=== PATIENT | female | born 1940 | race Caucasian/White ===

== ENCOUNTER → 2016-11-06 | Outpatient (CLI) | payer MEDICARE, OTHER ==
--- NOTE | 2016-11-07 13:23 | XR ---
Left ankle HISTORY: Trauma and pain 3 views of the left ankle There is mild soft tissue swelling. Bone mineralization, joint spaces and alignment are maintained. T here is a small plantar calcaneal spur. Calcification present along the insertion of the Achilles ten don, distal Achilles. IMPRESSION: No acute fracture or dislocation is evident.
== END | disposition home or self-care (01) ==
LOC: RADXRYALE 15:12
PROVIDERS: ATTEND Physician Assistant Medical
DX: S99.912A Unspecified injury of left ankle, initial encounter (principal)

== ENCOUNTER → 2016-11-19 | Outpatient (CLI) | payer MEDICARE, OTHER ==
--- NOTE | 2016-11-20 12:43 | MM ---
Reason for exam: screening (asymptomatic). Last mammogram was performed 1 year ago. History: Patient is postmenopausal. Benign excisional biopsy of the left breast. Benign excisional biopsy of the right breast. Took estrogen for 24 years. Took progesterone for 24 years. Physical Findings: A clinical breast exam by your physician is recommended on an annual basis and results should be correlated with mammographic findings. MG Screening Mammo w CAD Bilateral CC and MLO view(s) were taken. Prior study comparison: November 14, 2015, bilateral MG 3d screening mammo w/cad. November 08, 2014, bilateral MG screening mammo w CAD. The breast tissue is heterogeneously dense. This may lower the sensitivity of mammography. No significant changes when compared with prior studies. ASSESSMENT: Benign, BI-RAD 2 RECOMMENDATION: Routine screening mammogram of both breasts in 1 year.
== END | disposition home or self-care (01) ==
LOC: RADMAMWWP 13:00
PROVIDERS: ATTEND Family Medicine
DX: Z12.31 Encounter for screening mammogram for malignant neoplasm of breast (principal)

== ENCOUNTER → 2017-06-19 | Outpatient (CLI) | payer MEDICARE, OTHER ==
--- NOTE | 2017-06-19 11:48 | XR ---
EXAMINATION TYPE: XR ankle complete LT DATE OF EXAM: 06/19/2017 CLINICAL HISTORY: Left ankle pain and swelling after injury TECHNIQUE: Frontal, lateral and oblique images of the left ankle are obtained. COMPARISON: None. FINDINGS: There is no acute fracture/dislocation evident in the left ankle. The ankle mortise appea rs within normal limits. Tiny inferior calcaneal spur is noted. Anterior soft tissue swelling is note d. IMPRESSION: There is no acute fracture or dislocation in the left ankle.
== END | disposition home or self-care (01) ==
LOC: RADXRYALE 11:24
PROVIDERS: ATTEND Physician Assistant Medical
DX: S93.401A Sprain of unspecified ligament of right ankle, initial encounter (principal)

== ENCOUNTER → 2017-12-02 | Outpatient (CLI) | payer MEDICARE, OTHER ==
--- NOTE | 2017-12-02 15:23 | BD ---
EXAMINATION TYPE: Axial Bone Density DATE OF EXAM: 12/02/2017 CLINICAL HISTORY: Height: 63 Weight: 160 FRAX RISK QUESTIONS: Alcohol (3 or more units per day): no Family History (Parent hip fracture): no Glucocorticoids (More than 3mos): no (Ex: prednisone, prednisolone, methylprednisolone, dexamethasone, and hydrocortisone). History of Fracture in Adulthood: no Secondary Osteoporosis: 1. Type 1 Diabetes: no 2. Hyperthyroidism: no 3. Menopause before 45: no 4. Malnutrition: no 5. Chronic liver disease: no Rheumatoid Arthritis: no Current Tobacco Use: no RISK FACTORS HISTORY OF: Family History of Osteoporosis: no Active: yes Diet low in dairy products/other sources of calcium: about one serving a day Postmenopausal woman: yes Take estrogen and/or progesterone medications: not now How long: about 24 years Lost more than 2 inches in height since high school: no Frequent falls: no Poor Health: no Hyperparathyroidism: no Adrenal Insufficiency: no MEDICATIONS: Prednisone or other steroids: no Thyroid Medications: no Osteoporosis Medications: no Additional Medications: blood pressure meds, Vitamin D & calcium Additional History: see MR of Lumbar spine dated 03/08/1016 EXAM MEASUREMENTS: Bone mineral densitometry was performed using the [employer] System. Bone mineral density as measured about the Lumbar spine is: ----- L1-L4(G/cm2): 1.122 T Score Values are as follows: ----- L2: -0.3 ----- L3: -0.3 ----- L4: 0.4 ----- L1-L4: -0.5 Bone mineral density has: Decreased -10.4% since study of: 08/13/2002 Bone mineral density about the R hip (g/cm2): 0.849 Bone mineral density about the L hip (g/cm2): 0.800 T Score values are as follows: -----R Neck: -1.4 -----L Neck: -1.7 -----R Total: -0.2 -----L Total: -0.6 Bone mineral density has: Decreased -12.6% since study of: 08/13/2002 IMPRESSION: No evidence for osteoporosis or osteopenia. NOTE: T-SCORE=SD OF THE YOUNG ADULT MEAN.
--- NOTE | 2017-12-03 08:14 | MM ---
Reason for exam: screening (asymptomatic). Last mammogram was performed 1 year ago. History: Patient is postmenopausal. Benign excisional biopsy of the left breast. Benign excisional biopsy of the right breast. Took estrogen for 24 years. Took progesterone for 24 years. Physical Findings: A clinical breast exam by your physician is recommended on an annual basis and results should be correlated with mammographic findings. MG Screening Mammo w CAD Bilateral CC and MLO view(s) were taken. Prior study comparison: November 19, 2016, bilateral MG screening mammo w CAD. November 14, 2015, bilateral MG 3d screening mammo w/cad. The breast tissue is heterogeneously dense. This may lower the sensitivity of mammography. Stable benign calcifications. There is no discrete abnormality. No significant changes when compared with prior studies. ASSESSMENT: Benign, BI-RAD 2 RECOMMENDATION: Routine screening mammogram of both breasts in 1 year.
== END | disposition home or self-care (01) ==
LOC: RADMAMWWP 10:28
PROVIDERS: ATTEND Family Medicine
DX: Z12.31 Encounter for screening mammogram for malignant neoplasm of breast (principal); Z13.820 Encounter for screening for osteoporosis
CPT/HCPCS: 77067; 77080

== ENCOUNTER → 2018-10-06 | Outpatient (CLI) | payer MEDICARE, OTHER ==
--- NOTE | 2018-10-06 09:26 | XR ---
EXAMINATION TYPE: XR chest 2V DATE OF EXAM: 10/06/2018 COMPARISON: 11/15/2011 HISTORY: Productive cough for 4 to 5 days TECHNIQUE: Frontal and lateral views of the chest are obtained. FINDINGS: There is no focal air space opacity, pleural effusion, or pneumothorax seen. Chronic atele ctasis and/or scarring is seen at the left heart border unchanged from 2012. The cardiac silhouette s ize is within normal limits. The osseous structures are intact. Mild generalized osseous deminerali zation is seen. IMPRESSION: No acute cardiopulmonary process.
== END ==
LOC: RADXRYALE 08:53
PROVIDERS: ATTEND Family Medicine
DX: R05 Cough (principal)
CPT/HCPCS: 71046

== ENCOUNTER 2018-11-22 07:40 | Inpatient (IN) | payer MEDICARE, OTHER ==
[2018-11-22] MEDS ORDERED: MECLIZINE 12.5 MG TAB PO STA (08:05)
[2018-11-22] MEDS ORDERED: SODIUM CHLORIDE 0.9% 1,000 ML IV STA (08:05)
--- NOTE | 2018-11-22 08:17 | ED ---
Dizziness HPI - General Source: patient, family, RN notes reviewed Mode of arrival: wheelchair Limitations: no limitations <Giovanni Cohen - Last Filed: 11/22/18 11:43> <Vasile Sullivan - Last Filed: 11/22/18 11:50> - General Chief Complaint: Dizziness Stated Complaint: DIZZINESS Time Seen by Provider: 11/22/18 07:50 - History of Present Illness Initial Comments: 78-year-old female presents emergency Department chief complaint of dizziness. Patient states she woke up early this morning and had a headache at that time. She states she typically does not headaches. Patient is a headache has improved nearly dissipated. She states that she just so dizzy as difficulty ambulate. Patient denies any focal weakness. Patient denies any vomiting, chest pain or shortness of breath. He believes is related to her new medications Lexapro that she was just started on. Patient did contact her PCP who told discontinue it. Patient denies any trauma, fever, chills, neck pain or neck stiffness. Denies any recent URI symptoms other than mild seasonal ALLERGIES. (Giovanni Cohen) - Related Data Home Medications Medication Instructions Recorded Confirmed Meloxicam [Mobic] 15 mg PO DAILY 10/28/13 11/22/18 Metaxalone [Skelaxin] 800 mg PO BID 10/28/13 11/22/18 Verapamil HCl [Verapamil ER] 180 mg PO HS 10/28/13 11/22/18 Calcium Carbonate [Calcium] 1,200 mg PO DAILY 06/22/15 11/22/18 Cyanocobalamin [Vitamin B-12] 1,000 mcg PO DAILY 06/22/15 11/22/18 Lisinopril-Hctz 20-12.5 mg 1 tab PO QAM 06/22/15 11/22/18 [Zestoretic 20-12.5] Multivitamins, Thera [Theragran] 1 each PO DAILY@1200 06/22/15 11/22/18 Karen's Wort 300 mg PO DAILY 06/22/15 11/22/18 Vitamin E 400 unit PO DAILY 06/22/15 11/22/18 Melatonin 3 mg PO HS 08/10/15 11/22/18 Darifenacin Hydrobromide [Enablex] 7.5 mg PO DAILY 11/22/18 11/22/18 Allergies Allergy/AdvReac Type Severity Reaction Status Date / Time codeine AdvReac Nausea & Verified 11/22/18 08:43 Vomiting cyclobenzaprine HCl AdvReac Nausea & Verified 11/22/18 08:43 [From Flexeril] Vomiting ibuprofen [From Motrin] AdvReac Nausea & Verified 11/22/18 08:43 Vomiting morphine AdvReac Nausea & Verified 11/22/18 08:43 Vomiting pentazocine AdvReac Nausea & Verified 11/22/18 08:43 Vomiting tramadol HCl [From Ultram] AdvReac Nausea & Verified 11/22/18 08:43 Vomiting Review of Systems ROS Other: All systems not noted in ROS Statement are negative. <Giovanni Cohen - Last Filed: 11/22/18 11:43> ROS Other: All systems not noted in ROS Statement are negative. <Vasile Sullivan - Last Filed: 11/22/18 11:50> ROS Statement: Those systems with pertinent positive or pertinent negative responses have been documented in the HPI. Past Medical History Past Medical History: Hypertension, Osteoarthritis (OA) Additional Past Medical History / Comment(s): UTERINE PROLAPSED. bladder problems History of Any Multi-Drug Resistant Organisms: MRSA Date of last positivie culture/infection: 06/22/2015 MDRO Source:: urine Past Surgical History: Bladder Surgery, Hysterectomy, Orthopedic Surgery Additional Past Surgical History / Comment(s): rt shoulder arthroscopy, NIKI knee surg. arthroscopy,niki breast bx Past Anesthesia/Blood Transfusion Reactions: No Reported Reaction Additional Past Anesthesia/Blood Transfusion Reaction / Comment(s): no hx blood transfusion Past Psychological History: No Psychological Hx Reported Smoking Status: Never smoker Past Alcohol Use History: None Reported Past Drug Use History: None Reported - Past Family History Father Family Medical History: Cancer Mother Family Medical History: Osteoarthritis (OA) Additional Family Medical History / Comment(s): blockage in artery in neck Sister(s) Family Medical History: Pneumonia <Giovanni Cohen - Last Filed: 11/22/18 11:43> General Exam Limitations: no limitations General appearance: alert, in no apparent distress Head exam: Present: atraumatic, normocephalic, normal inspection Eye exam: Present: normal appearance, PERRL, EOMI. Absent: scleral icterus, conjunctival injection, periorbital swelling ENT exam: Present: normal exam, normal oropharynx, mucous membranes moist, TM's normal bilaterally Neck exam: Present: normal inspection, full ROM. Absent: tenderness, meningismus, lymphadenopathy Respiratory exam: Present: normal lung sounds bilaterally. Absent: respiratory distress, wheezes, rales, rhonchi, stridor Cardiovascular Exam: Present: regular rate, normal rhythm, normal heart sounds. Absent: systolic murmur, diastolic murmur, rubs, gallop, clicks GI/Abdominal exam: Present: soft, normal bowel sounds. Absent: distended, tenderness, guarding, rebound, rigid Back exam: Absent: CVA tenderness (R), CVA tenderness (L) Neurological exam: Present: alert, oriented X3, CN II-XII intact, reflexes normal, other (Finger to nose intact bilaterally, normal Romberg). Absent: motor sensory deficit Skin exam: Present: warm, dry, intact, normal color. Absent: rash <Giovanni Cohen - Last Filed: 11/22/18 11:43> Course <Vasile Sullivan - Last Filed: 11/22/18 11:50> Vital Signs 11/22/18 07:43 Temperature 98.2 F Pulse Rate 84 Respiratory 18 Rate Blood Pressure 134/75 O2 Sat by Pulse 99 Oximetry - Reevaluation(s) Reevaluation #1: 11/22/18 11:49 PA supervision: I proceeded [id number] evaluation the patient did discuss findings with her. She does complain of waking up with a headache and dizziness and difficulty walking. CAT scan was negative lab work demonstrates a sodium 125 which is new for her patient will be admitted for symptomatic hyponatremia neurology will be consulted. I did discuss case with Dr. Man (Vasile Sullivan) EKG Findings - EKG Comments: EKG Findings:: EKG performed at 8:29 normal sinus rhythm rate of 73 ME 144 QRS 72 QT /QTC 410/451 <Giovanni Cohen - Last Filed: 11/22/18 11:43> Medical Decision Making - Lab Data Result diagrams: 11/22/18 08:20 11/22/18 08:20 <Giovanni Cohen - Last Filed: 11/22/18 11:43> - Lab Data Result diagrams: 11/22/18 08:20 11/22/18 08:20 <Vasile Sullivan - Last Filed: 11/22/18 11:50> - Medical Decision Making 78-year-old female sent for dizziness. Patient's found to have mild hypon atremia, symptomatic vertigo. Patient also has elevated LFTs. Patient be admitted time for further evaluation. (Giovanni Cohen) - Lab Data Lab Results 11/22/18 11/22/18 11/22/18 Range/Units 08:20 08:20 08:20 WBC 6.5 (3.8-10.6) k/uL RBC 4.70 (3.80-5.40) m/uL Hgb 13.2 (11.4-16.0) gm/dL Hct 37.8 (34.0-46.0) % MCV 80.4 (80.0-100.0) fL MCH 28.2 (25.0-35.0) pg MCHC 35.0 (31.0-37.0) g/dL RDW 15.9 H (11.5-15.5) % Plt Count 301 (150-450) k/uL Neutrophils % 71 % Lymphocytes % 17 % Monocytes % 9 % Eosinophils % 1 % Basophils % 1 % Neutrophils # 4.6 (1.3-7.7) k/uL Lymphocytes # 1.1 (1.0-4.8) k/uL Monocytes # 0.6 (0-1.0) k/uL Eosinophils # 0.1 (0-0.7) k/uL Basophils # 0.0 (0-0.2) k/uL Sodium 125 L (137-145) mmol/L Potassium 3.4 L (3.5-5.1) mmol/L Chloride 90 L (98-107) mmol/L Carbon Dioxide 23 (22-30) mmol/L Anion Gap 12 mmol/L BUN 15 (7-17) mg/dL Creatinine 0.58 (0.52-1.04) mg/dL Est GFR (CKD-EPI)AfAm >90 (>60 ml/min/1.73 sqM) Est GFR (CKD-EPI)NonAf 88 (>60 ml/min/1.73 sqM) Glucose 116 H (74-99) mg/dL Calcium 9.7 (8.4-10.2) mg/dL Magnesium (1.6-2.3) mg/dL Total Bilirubin 1.2 (0.2-1.3) mg/dL AST 288 H (14-36) U/L ALT 303 H (9-52) U/L Alkaline Phosphatase 143 H (38-126) U/L Troponin I <0.012 (0.000-0.034) ng/mL Total Protein 7.9 (6.3-8.2) g/dL Albumin 4.5 (3.5-5.0) g/dL Urine Color Urine Appearance (Clear) Urine pH (5.0-8.0) Ur Specific [place] (1.001-1.035) Urine Protein (Negative) Urine Glucose (UA) (Negative) Urine Ketones (Negative) Urine Blood (Negative) Urine Nitrite (Negative) Urine Bilirubin (Negative) Urine Urobilinogen (<2.0) mg/dL Ur Leukocyte Esterase (Negative) 11/22/18 11/22/18 Range/Units 08:20 09:13 WBC (3.8-10.6) k/uL RBC (3.80-5.40) m/uL Hgb (11.4-16.0) gm/dL Hct (34.0-46.0) % MCV (80.0-100.0) fL MCH (25.0-35.0) pg MCHC (31.0-37.0) g/dL RDW (11.5-15.5) % Plt Count (150-450) k/uL Neutrophils % % Lymphocytes % % Monocytes % % Eosinophils % % Basophils % % Neutrophils # (1.3-7.7) k/uL Lymphocytes # (1.0-4.8) k/uL Monocytes # (0-1.0) k/uL Eosinophils # (0-0.7) k/uL Basophils # (0-0.2) k/uL Sodium (137-145) mmol/L Potassium (3.5-5.1) mmol/L Chloride (98-107) mmol/L Carbon Dioxide (22-30) mmol/L Anion Gap mmol/L BUN (7-17) mg/dL Creatinine (0.52-1.04) mg/dL Est GFR (CKD-EPI)AfAm (>60 ml/min/1.73 sqM) Est GFR (CKD-EPI)NonAf (>60 ml/min/1.73 sqM) Glucose (74-99) mg/dL Calcium (8.4-10.2) mg/dL Magnesium 1.8 (1.6-2.3) mg/dL Total Bilirubin (0.2-1.3) mg/dL AST (14-36) U/L ALT (9-52) U/L Alkaline Phosphatase (38-126) U/L Troponin I (0.000-0.034) ng/mL Total Protein (6.3-8.2) g/dL Albumin (3.5-5.0) g/dL Urine Color Light Yellow Urine Appearance Clear (Clear) Urine pH 7.0 (5.0-8.0) Ur Specific [place] 1.004 (1.001-1.035) Urine Protein Negative (Negative) Urine Glucose (UA) Negative (Negative) Urine Ketones Negative (Negative) Urine Blood Negative (Negative) Urine Nitrite Negative (Negative) Urine Bilirubin Negative (Negative) Urine Urobilinogen <2.0 (<2.0) mg/dL Ur Leukocyte Esterase Negative (Negative) Disposition <Giovanni Cohen - Last Filed: 11/22/18 11:43> <Vasile Sullivan - Last Filed: 11/22/18 11:50> Clinical Impression: Dizziness, Vertigo Disposition: ADMITTED IP TO THIS HOSP Condition: Fair Referrals: Giovanni Ruiz DO [Primary Care Provider] - 1-2 days
[2018-11-22 08:32] LABS: Basophils % (A) 1 %; Eosinophils # (A) 0.1 k/uL (0-0.7); Eosinophils % (A) 1 %; HCT 37.8 % (34.0-46.0); HGB 13.2 gm/dL (11.4-16.0); Lymphocytes # (A) 1.1 k/uL (1.0-4.8); Lymphocytes % (A) 17 %; MCH 28.2 pg (25.0-35.0); MCV 80.4 fL (80.0-100.0); Mean Platelet Volume 7.1; Monocytes # (A) 0.6 k/uL (0-1.0); Monocytes % (A) 9 %; Neutrophils # (A) 4.6 k/uL (1.3-7.7); Neutrophils % (A) 71 %; Platelet Count 301 k/uL (150-450); RDW 15.9 % (11.5-15.5); WBC 6.5 k/uL (3.8-10.6)
[2018-11-22 08:44] LABS: ALT 303 U/L (9-52); AST 288 U/L (14-36); African American GFR (CKD) >90 (>60 ml/min/1.73 sqM); Albumin 4.5 g/dL (3.5-5.0); Alkaline Phosphatase 143 U/L (38-126); Anion Gap 12 mmol/L; Blood Urea Nitrogen 15 mg/dL (7-17); Calcium 9.7 mg/dL (8.4-10.2); Carbon Dioxide 23 mmol/L (22-30); Chloride 90 mmol/L (98-107); Glucose 116 mg/dL (74-99); Potassium 3.4 mmol/L (3.5-5.1); Sodium 125 mmol/L (137-145); Total Bilirubin 1.2 mg/dL (0.2-1.3); Total Protein 7.9 g/dL (6.3-8.2)
[2018-11-22 09:27] LABS: Appearance,Urine Clear (Clear); Bilirubin,Urine Negative (Negative); Blood,Urine Negative (Negative); Color,Urine Light Yellow; Glucose,Urine (UA) Negative (Negative); Ketones,Urine Negative (Negative); Leukocyte Esterase,Urine Negative (Negative); Nitrite,Urine Negative (Negative); Protein,Urine Negative (Negative); Specific Gravity,Urine 1.004 (1.001-1.035); Urobilinogen,Urine <2.0 mg/dL (<2.0)
--- NOTE | 2018-11-22 09:27 | CT ---
EXAMINATION TYPE: CT brain wo con DATE OF EXAM: 11/22/2018 COMPARISON: NONE HISTORY: Weakness and dizziness CT DLP: 1038.4 mGycm Automated exposure control for dose reduction was used. FINDINGS: There are generalized changes of sulcal prominence and ventriculomegaly, compatible with atrophic jess nge. There is diffuse periventricular white matter lucency, compatible with chronic white matter isch emic change. There is no acute focal lesion, mass effect or midline shift identified. I do not see ev idence of intracranial blood. Visualized portions of the paranasal sinuses and mastoids are clear. The bony calvarium is intact. IMPRESSION: 1. NO ACUTE INTRACRANIAL ABNORMALITY. 2. DEGENERATIVE CHANGE.
--- NOTE | 2018-11-22 09:27 | XR ---
EXAMINATION TYPE: XR chest 2V DATE OF EXAM: 11/22/2018 HISTORY: dizziness. REFERENCE: Previous study dated 10/06/2018. FINDINGS: Lungs are clear. Pleural space are clear. The heart is not enlarged. IMPRESSION: NO ACTIVE INTRATHORACIC DISEASE.
[2018-11-22] MEDS ORDERED: ONDANSETRON 4 MG/2 ML VIAL IVP PRN (11:44)
[2018-11-22] MEDS ORDERED: NALOXONE 0.4 MG/ML 1 ML VIAL IV PRN (11:44)
[2018-11-22 13:08] VITALS: BMI 26.5
[2018-11-22] MEDS: HEPARIN SODIUM,PORCINE 5,000 UNIT/ML 1 ML VIAL SQ SCH (16:17)
[2018-11-22] MEDS: SODIUM CHLORIDE 0.9% 1,000 ML IV SCH (16:18)
[2018-11-22] MEDS ORDERED: LORATADINE 10 MG TAB PO PRN (20:24)
[2018-11-22] MEDS ORDERED: MELATONIN 3 MG TABLET PO SCH (21:00)
[2018-11-23] MEDS: SODIUM CHLORIDE 0.9% 1,000 ML IV SCH (01:04)
[2018-11-23] MEDS: HEPARIN SODIUM,PORCINE 5,000 UNIT/ML 1 ML VIAL SQ SCH ×2 (01:04→07:15)
--- NOTE | 2018-11-23 01:13 | P.HPIM ---
History of Present Illness H&P Date: 11/22/18 Chief Complaint: Dizziness Patient is a 78-year-old female with a known history of hypertension, osteoarthritis was brought to the hospital by family due to compression of diz ziness and decreased responsiveness.Patient states she woke up early this morning and had a headache at that time. She states she typically does not headaches. Patient is a headache has improved nearly dissipated. She states that she just so dizzy as difficulty ambulate. Patient denies any focal weakness. Patient denies any vomiting, chest pain or shortness of breath. Patient believes is related to her new medications Lexapro that she was just started on last Friday. Patient did contact her PCP who told discontinue it. Patient denies any trauma, fever, chills, neck pain or neck stiffness. Denies any recent URI symptoms other than mild seasonal ALLERGIES. CT head showed no acute intracranial process. Chest x-rays negative EKG normal sinus rhythm. Sodium level 125 , potassium 3.4 Elevated ALT AST and alk phos. Patient denied any abdominal pain. Past Medical History Past Medical History: Hypertension, Osteoarthritis (OA) Additional Past Medical History / Comment(s): UTERINE PROLAPSED. bladder problems History of Any Multi-Drug Resistant Organisms: MRSA Date of last positivie culture/infection: 06/22/2015 MDRO Source:: urine Past Surgical History: Bladder Surgery, Hysterectomy, Orthopedic Surgery Additional Past Surgical History / Comment(s): rt shoulder arthroscopy, NIKI knee surg. arthroscopy,niki breast bx Past Anesthesia/Blood Transfusion Reactions: No Reported Reaction Additional Past Anesthesia/Blood Transfusion Reaction / Comment(s): no hx blood transfusion Past Psychological History: No Psychological Hx Reported Smoking Status: Never smoker Past Alcohol Use History: None Reported Past Drug Use History: None Reported Review of Systems Constitutional: Patient denies any fever or chills . No generalized weakness or weight loss. Abdomen: Patient denied nausea vomiting and diarrhea and abdominal pain. Cardiovascular: Patient denies any chest pain or short of breath no palpitations. Respiratory: patient denied any cough is from production. No shortness of avelino ath Neurologic: Patient denied any numbness or tingling headache. Dizziness. Musculoskeletal: Patient denies any complaints of joint swelling or deformity. Skin: Negative Psychiatric: Negative Endocrine: No heat or cold intolerance. No recent weight gain. Genitourinary: No dysuria or hematuria. All other 14 point ROS negative except the above Past Medical History Past Medical History: Hypertension, Osteoarthritis (OA) Additional Past Medical History / Comment(s): UTERINE PROLAPSED. bladder problems History of Any Multi-Drug Resistant Organisms: MRSA Date of last positivie culture/infection: 06/22/2015 MDRO Source:: urine Past Surgical History: Bladder Surgery, Hysterectomy, Orthopedic Surgery Additional Past Surgical History / Comment(s): rt shoulder arthroscopy, NIKI knee surg. arthroscopy,niki breast bx Past Anesthesia/Blood Transfusion Reactions: No Reported Reaction Additional Past Anesthesia/Blood Transfusion Reaction / Comment(s): no hx blood transfusion Past Psychological History: No Psychological Hx Reported Smoking Status: Never smoker Past Alcohol Use History: None Reported Past Drug Use History: None Reported - Past Family History Father Family Medical History: Cancer Mother Family Medical History: Osteoarthritis (OA) Additional Family Medical History / Comment(s): blockage in artery in neck Sister(s) Family Medical History: Pneumonia Medications and Allergies Home Medications Medication Instructions Recorded Confirmed Type Meloxicam [Mobic] 15 mg PO DAILY 10/28/13 11/22/18 History Metaxalone [Skelaxin] 800 mg PO BID 10/28/13 11/22/18 History Verapamil HCl [Verapamil ER] 180 mg PO HS 10/28/13 11/22/18 History Calcium Carbonate [Calcium] 1,200 mg PO DAILY 06/22/15 11/22/18 History Cyanocobalamin [Vitamin B-12] 1,000 mcg PO DAILY 06/22/15 11/22/18 History Lisinopril-Hctz 20-12.5 mg 1 tab PO QAM 06/22/15 11/22/18 History [Zestoretic 20-12.5] Multivitamins, Thera [Theragran] 1 each PO DAILY@1200 06/22/15 11/22/18 History Karen's Wort 300 mg PO DAILY 06/22/15 11/22/18 History Vitamin E 400 unit PO DAILY 06/22/15 11/22/18 History Melatonin 3 mg PO HS 08/10/15 11/22/18 History Darifenacin Hydrobromide [Enablex] 7.5 mg PO DAILY 11/22/18 11/22/18 History Allergies Allergy/AdvReac Type Severity Reaction Status Date / Time codeine AdvReac Nausea & Verified 11/22/18 08:43 Vomiting cyclobenzaprine HCl AdvReac Nausea & Verified 11/22/18 08:43 [From Flexeril] Vomiting ibuprofen [From Motrin] AdvReac Nausea & Verified 11/22/18 08:43 Vomiting morphine AdvReac Nausea & Verified 11/22/18 08:43 Vomiting pentazocine AdvReac Nausea & Verified 11/22/18 08:43 Vomiting tramadol HCl [From Ultram] AdvReac Nausea & Verified 11/22/18 08:43 Vomiting Physical Exam Vitals: Vital Signs Temp Pulse Pulse Resp BP BP BP 11/22/18 13:25 130/73 11/22/18 13:22 97.5 F L 71 16 135/76 11/22/18 13:15 16 11/22/18 11:46 98.3 F 75 16 152/90 11/22/18 07:43 98.2 F 84 18 134/75 BP BP Pulse Ox 11/22/18 13:25 118/70 135/76 11/22/18 13:22 100 11/22/18 13:15 11/22/18 11:46 97 11/22/18 07:43 99 Intake and Output 11/22/18 11/22/18 11/22/18 06:59 14:59 22:59 Other: Weight 68.039 kg PHYSICAL EXAMINATION: Patient is lying in the bed comfortably, no acute distress, awake alert and oriented.. HEENT: Normocephalic. Neck is supple. Pupils reactive. Nostrils clear. Oral cavity is moist. Ears reveal no drainage. Neck reveals no JVD, carotid bruits, or thyromegaly. CHEST EXAMINATION: Trachea is central. Symmetrical expansion. Lung barlow clear to auscultation and percussion. CARDIAC: Normal S1, S2 with no gallops. No murmurs ABDOMEN: Soft. Bowel sounds normal. No organomegaly. No abdominal bruits. Extremities: reveal no edema. No clubbing or cyanosis Neurologically awake, alert, oriented x3 with well-coordinated movements. No focal deficits noted Skin: No rash or skin lesions. Psychiatric: Coperative. Nonsuicidal Musculoskeletal: No joint swelling or deformity. Normal range of motion. Results CBC & Chem 7: 11/22/18 08:20 06/16/19 08:20 Labs: Abnormal Lab Results - Last 24 Hours (Table) 11/22/18 11/22/18 Range/Units 08:20 08:20 RDW 15.9 H (11.5-15.5) % Sodium 125 L (137-145) mmol/L Potassium 3.4 L (3.5-5.1) mmol/L Chloride 90 L (98-107) mmol/L Glucose 116 H (74-99) mg/dL AST 288 H (14-36) U/L ALT 303 H (9-52) U/L Alkaline Phosphatase 143 H (38-126) U/L Thrombosis Risk Factor Assmnt - DVT/VTE Prophylaxis DVT/VTE Prophylaxis: Pharmacologic Prophylaxis ordered - Choose All That Apply Each Risk Factor Represents 3 Points: Age 75 years or older Thrombosis Risk Factor Assessment Total Risk Factor Score: 3 Thrombosis Risk Factor Assessment Level: Moderate Risk Assessment and Plan Assessment: Hyponatremia likely hypovolemic hyponatremia. Will hold hydrochlorothiazide. Hypokalemia replaced Elevated liver enzymes. Will check hepatitis panel and ultrasound right upper quadrant. Hypertension. Currently blood pressure is not elevated Osteoarthritis of multiple joints DVT prophylaxis with heparin subcu Plan: Patient will be continued on IV fluids with normal saline. Monitor sodium level. Will hold hydrochlorothiazide. Will hold other medications include lisinopril and verapamil due to blood pressure being not elevated. Continue with other home medications. Monitor liver enzymes and follow-up hepatitis panel and ultrasound of the abdomen. Current with supportive management and further recommendations based on the clinical course. Prognosis is guarded at this time. Time with Patient: Greater than 30
[2018-11-23 03:12] VITALS: RESP 16
[2018-11-23] MEDS ORDERED: CYANOCOBALAMIN 500 MCG TAB PO SCH (07:30)
[2018-11-23 08:14] LABS: ALT 245 U/L (9-52); AST 234 U/L (14-36); African American GFR (CKD) >90 (>60 ml/min/1.73 sqM); Albumin 3.7 g/dL (3.5-5.0); Alkaline Phosphatase 112 U/L (38-126); Anion Gap 8 mmol/L; Blood Urea Nitrogen 16 mg/dL (7-17); Calcium 8.8 mg/dL (8.4-10.2); Carbon Dioxide 24 mmol/L (22-30); Chloride 100 mmol/L (98-107); Glucose 86 mg/dL (74-99); Potassium 4.1 mmol/L (3.5-5.1); Sodium 132 mmol/L (137-145); Total Bilirubin 1.1 mg/dL (0.2-1.3); Total Protein 6.8 g/dL (6.3-8.2)
[2018-11-23 08:53] LABS: Basophils % (A) 1 %; Eosinophils # (A) 0.1 k/uL (0-0.7); Eosinophils % (A) 2 %; HCT 35.7 % (34.0-46.0); HGB 11.9 gm/dL (11.4-16.0); Lymphocytes % (A) 21 %; MCHC 33.4 g/dL (31.0-37.0); MCV 83.8 fL (80.0-100.0); Mean Platelet Volume 7.3; Monocytes # (A) 0.4 k/uL (0-1.0); Monocytes % (A) 9 %; Neutrophils % (A) 64 %; Platelet Count 264 k/uL (150-450); RBC 4.26 m/uL (3.80-5.40); RDW 13.9 % (11.5-15.5); WBC 4.6 k/uL (3.8-10.6)
[2018-11-23] MEDS ORDERED: VITAMIN E (DL,TOCOPHERYL ACET) 400 UNIT CAP PO SCH (09:00)
[2018-11-23] MEDS ORDERED: CALCIUM CARBONATE 500 MG CHEWABLE PO SCH (09:00)
[2018-11-23] MEDS ORDERED: TROSPIUM CHLORIDE 20 MG TABLET PO SCH (09:00)
[2018-11-23 11:31] LABS: Hepatitis A Antibody IgM Non-Reactive (Non-Reactive); Hepatitis B Core IgM Non-Reactive (Non-Reactive)
[2018-11-23] MEDS ORDERED: MULTIVITAMINS, THERA 1 EACH TAB PO SCH (12:00)
[2018-11-23 13:48] VITALS: BP 154/82; PULSE 69; TEMP 97.8
--- NOTE | 2018-11-23 14:40 | US ---
EXAMINATION TYPE: US abdomen limited DATE OF EXAM: 11/23/2018 COMPARISON: NONE CLINICAL HISTORY: 78-year-old female Elevated liver enzymes. transaminitis,dizziness, hyponatremia TECHNIQUE: Multiple sonographic images of the right upper quadrant are obtained. FINDINGS: EXAM MEASUREMENTS: Liver Length: 11.1 cm Gallbladder Wall: 0.2 cm CBD: 0.1 cm Right Kidney: 10.5 x 5.9 x 5.0 cm Pancreas: No gross abnormality. Some limitation in visualization. Liver: wnl, no masses seen Gallbladder: wnl Evidence for sonographic Mcmahon's sign: no CBD: wnl Right Kidney: Mild pelviectasis. No calyceal dilatation to suggest hydronephrosis. IMPRESSION: No focal liver lesion or biliary ductal dilatation.
[2018-11-23] MEDS ORDERED: LISINOPRIL 20 MG TAB PO SCH (15:00)
== END 2018-11-23 16:15 | disposition home or self-care (01) | DRG 641 ==
LOC: EC 07:40 → 4SSUR 11:44
PROVIDERS: ADMIT Internal Medicine; ATTEND Internal Medicine
DX: E87.1 Hypo-osmolality and hyponatremia (principal); E86.1 Hypovolemia; E87.6 Hypokalemia; I10 Essential (primary) hypertension; J30.2 Other seasonal allergic rhinitis; R74.8 Abnormal levels of other serum enzymes; R42 Dizziness and giddiness; M15.9 Polyosteoarthritis, unspecified; Z79.1 Long term (current) use of non-steroidal anti-inflammatories (NSAID); Z79.899 Other long term (current) drug therapy; Z88.6 Allergy status to analgesic agent; Z88.5 Allergy status to narcotic agent; Z88.8 Allergy status to other drugs, medicaments and biological substances; Z86.14 Personal history of Methicillin resistant Staphylococcus aureus infection; Z90.710 Acquired absence of both cervix and uterus; Z82.61 Family history of arthritis
CPT/HCPCS: 36415; 70450; 71046; 76705; 80053; 80074; 81003; 83735; 84484; 85025; 93005; 96360; 99285

== ENCOUNTER → 2018-12-24 | Outpatient (CLI) | payer MEDICARE, OTHER ==
--- NOTE | 2018-12-25 11:31 | MM ---
Reason for exam: screening (asymptomatic). Last mammogram was performed 1 year and 1 month ago. History: Patient is postmenopausal. Benign excisional biopsy of the left breast. Benign excisional biopsy of the right breast. Took estrogen for 24 years. Took progesterone for 24 years. Physical Findings: A clinical breast exam by your physician is recommended on an annual basis and results should be correlated with mammographic findings. MG Screening Mammo w CAD Bilateral CC and MLO view(s) were taken. Prior study comparison: December 02, 2017, bilateral MG screening mammo w CAD. November 19, 2016, bilateral MG screening mammo w CAD. The breast tissue is heterogeneously dense. This may lower the sensitivity of mammography. Increasing microcalcifications upper outer left breast posterior third position. This finding is changed when compared with previous exams. ASSESSMENT: Incomplete: need additional imaging evaluation, BI-RAD 0 RECOMMENDATION: Special view mammogram of the left breast. [facility] will attempt to contact patient to return for supplemental views.
== END | disposition home or self-care (01) ==
LOC: RADMAMWWP 10:35
PROVIDERS: ATTEND Family Medicine
DX: Z12.31 Encounter for screening mammogram for malignant neoplasm of breast (principal)
CPT/HCPCS: 77067

== ENCOUNTER → 2018-12-31 | Outpatient (CLI) | payer MEDICARE ==
[2018-12-31 14:46] LABS: African American GFR (CKD) >90 (>60 ml/min/1.73 sqM); Blood Urea Nitrogen 12 mg/dL (7-17)
--- NOTE | 2018-12-31 15:23 | CT ---
EXAMINATION TYPE: CT abdomen pelvis w con DATE OF EXAM: 12/31/2018 HISTORY: Elevated liver enzymes. Jaundice. CT DLP: 735mGycm Automated Exposure Control for Dose Reduction was Utilized. CONTRAST: CT scan of the abdomen and pelvis is performed with oral and with IV Contrast, patient injected with 100 mL of Isovue 300. COMPARISON: Ultrasound abdomen limited November 23, 2018 FINDINGS: LUNG BASES: There is focal lateral atelectasis and/or consolidation axial image 9. LIVER/GB: There is suspected small 7 x 3 mm stone in the gallbladder neck axial image 22. This could also reflect small layering stones and/or gallbladder sludge. This is not as well seen on ultrasound due to central location. Gallbladder shows no significant surrounding fat stranding or wall thickenin g. Liver is small in size without suspicious intrahepatic or extrahepatic biliary dilatation PANCREAS: No significant abnormality is seen. SPLEEN: A 1.1 cm simple appearing thin-walled cyst suspected inferior lateral aspect spleen axial aaron ge 20. ADRENALS: No significant abnormality is seen. KIDNEYS: Symmetric cortical medullary uptake and excretion without hydronephrosis seen bilaterally. BOWEL: Oral contrast to the level of the splenic flexure. No suspicious small and large bowel dilatat ion UTERUS/ADNEXA: Uterus small in size or atrophic in appearance. LYMPH NODES: No greater than 1cm abdominal or pelvic lymph nodes are appreciated. OSSEOUS STRUCTURES: Moderate disc space narrowing and vacuum disc phenomenon L4-L5 through the L5-S1 levels. Mild to moderate joint space loss both hips. Facet arthropathy lower lumbar spine. OTHER: Scattered posterior injection granulomas. IMPRESSION: There is small stone in gallbladder neck not clearly seen on ultrasound. No worrisome int rahepatic mass or biliary ductal dilatation is noted.
== END | disposition home or self-care (01) ==
LOC: RADCTMAIN 12:42
PROVIDERS: ATTEND Internal Medicine Gastroenterology
DX: R74.8 Abnormal levels of other serum enzymes (principal)
CPT/HCPCS: 82565; 84520; 74177; 36415; Q9967

== ENCOUNTER → 2018-12-31 | Outpatient (CLI) | payer MEDICARE, OTHER ==
[2018-12-31 08:41] LABS: Basophils % (A) 1 %; Eosinophils # (A) 0.2 k/uL (0-0.7); Eosinophils % (A) 2 %; HCT 38.5 % (34.0-46.0); HGB 12.5 gm/dL (11.4-16.0); Lymphocytes % (A) 13 %; MCH 28.6 pg (25.0-35.0); MCHC 32.5 g/dL (31.0-37.0); MCV 87.9 fL (80.0-100.0); Monocytes # (A) 0.6 k/uL (0-1.0); Monocytes % (A) 8 %; Neutrophils # (A) 5.7 k/uL (1.3-7.7); Neutrophils % (A) 74 %; Platelet Count 287 k/uL (150-450); RBC 4.38 m/uL (3.80-5.40); WBC 7.7 k/uL (3.8-10.6)
[2018-12-31 16:04] LABS: Iron Saturation 38.75 (12.00-45.00)
[2018-12-31 16:43] LABS: Protein, Total 6.9 g/dL (6.2-8.2)
[2018-12-31 16:57] LABS: African American GFR (CKD) 80.7 (60.0-200.0); Albumin 3.3 g/dL (3.80-4.90); Albumin/Globulin Ratio 0.92 (1.60-3.17); Anion Gap 6.5 mmol/L (4.00-12.00); BUN/Creat Ratio 13.75 Ratio (12.00-20.00); Calcium 8.6 mg/dL (8.7-10.3); Carbon Dioxide 24.5 mmol/L (21.6-31.8); Globulin 3.6 g/dL (1.6-3.3); Potassium 4.8 mmol/L (3.5-5.5); Total Bilirubin 7.5 mg/dL (0.2-1.2); Total Protein 6.9 g/dL (6.2-8.2)
[2019-01-01 12:55] LABS: Albumin 3.15 g/dL (3.80-4.90); Gamma Globulin 2.13 g/dL (0.70-1.50)
[2019-01-01 13:04] LABS: ANA Pattern Speckled
== END | disposition home or self-care (01) ==
LOC: LABWHC1 07:55
PROVIDERS: ATTEND Internal Medicine Gastroenterology
DX: R74.8 Abnormal levels of other serum enzymes (principal)
CPT/HCPCS: 36415; 80053; 80074; 82103; 82728; 83540; 83550; 84165; 85025; 86038; 86039

== ENCOUNTER 2019-01-06 07:33 | Day surgery (SDC) | payer MEDICARE, OTHER ==
[2019-01-06] MEDS ORDERED: ALPRAZolam 0.25 MG TAB PO STA (08:22)
[2019-01-06 08:56] LABS: Mean Platelet Volume 8.7; Platelet Count 315 k/uL (150-450)
[2019-01-06 09:16] LABS: INR 1.8 (<1.2); Prothrombin Time 17.8 sec (9.0-12.0)
[2019-01-06 13:00] VITALS: TEMP 98.1
--- NOTE | 2019-01-06 14:03 | US ---
EXAMINATION TYPE: US biopsy liver DATE OF EXAM: 01/06/2019 HISTORY: Elevated liver function tests. This PROCEDURE: Maximal barrier technique was utilized. After informed consent, the skin overlying a suit able path to the left lobe liver was localized using ultrasound, the skin was prepped and draped. Ul trasound was utilized with sterile technique. Lidocaine was used for local anesthesia. A skin ángel m azalea with a scalpel. Under direct ultrasound guidance, an 18-gauge needle was advanced into the left lobe of the liver and core biopsy obtained. Hemostasis was achieved. There was no immediate complic ation and patient remained in stable condition. Specimen submitted in formalin to Pathology. IMPRESSION: STATUS POST ULTRASOUND GUIDED CORE BIOPSY OF THE LEFT LOBE OF THE LIVER, PATHOLOGY KASI Cortés PERFORMED BY THE UNDERSIGNED.
[2019-01-06 20:12] VITALS: BP 156/68; PULSE 64; RESP 16
== END 2019-01-06 17:00 | disposition home or self-care (01) ==
LOC: RADPROMAIN 07:33
PROVIDERS: ATTEND Internal Medicine Gastroenterology
DX: R74.8 Abnormal levels of other serum enzymes (principal)
CPT/HCPCS: 85049; 85610; 88313; 88307; 36415; 47000; 76942; P9059

== ENCOUNTER → 2019-01-22 | Outpatient (CLI) | payer MEDICARE, OTHER ==
--- NOTE | 2019-01-25 07:56 | MM ---
Reason for exam: additional evaluation requested from abnormal screening. Last mammogram was performed 1 month ago. History: Patient is postmenopausal. Benign excisional biopsy of the left breast. Benign excisional biopsy of the right breast. Took estrogen for 24 years. Took progesterone for 24 years. Physical Findings: Nurse did not find any significant physical abnormalities on exam. MG Work Up Mamm w CAD LT CC with magnification, LM with magnification, and LM view(s) were taken of the left breast. Prior study comparison: December 24, 2018, bilateral MG screening mammo w CAD. December 02, 2017, bilateral MG screening mammo w CAD. November 19, 2016, bilateral MG screening mammo w CAD. November 14, 2015, bilateral MG 3d screening mammo w/cad. November 08, 2014, bilateral MG screening mammo w CAD. November 05, 2013, bilateral MG screening mammo w CAD. October 07, 2012, CAD bilateral diagnostic mammogram. The breast tissue is heterogeneously dense. This may lower the sensitivity of mammography. Left lower outer quadrant posterior depth calcifications appear rounded and most appear present in 2016. Precautionary 6 month follow up recommended. Additional linear left upper outer quadrant middle depth calcifications appear present as far back as 2012. These results were verbally communicated with the patient and result sheet given to the patient on 01/22/19. ASSESSMENT: Probably benign, BI-RAD 3 RECOMMENDATION: Follow-up diagnostic mammogram of the left breast in 6 months.
== END | disposition home or self-care (01) ==
LOC: RADMAMWWP 13:33
PROVIDERS: ATTEND Family Medicine
DX: R92.8 Other abnormal and inconclusive findings on diagnostic imaging of breast (principal)
CPT/HCPCS: 77065

== ENCOUNTER 2019-06-18 10:42 | Day surgery (SDC) | payer MEDICARE, OTHER ==
[2019-06-17 10:22] VITALS: BMI 28.3
[~2019-06-18 10:42] MED LIST: LACTATED RINGERS 1,000 ML IV SCH
[2019-06-18] MEDS ORDERED: LIDOCAINE 1% 20 ML VIAL (10MG/ML) FOR IV START INTRADERMA ONE (12:00)
[2019-06-18 12:03] VITALS: RESP 16; TEMP 98.3
[2019-06-18] MEDS ORDERED: LIDOCAINE 1% INJ 10MG/ML (20 ML MDV) ONE (12:30)
[2019-06-18] MEDS ORDERED: PROPOFOL 10 MG/ML 20 ML VIAL IV ONE (12:30)
--- NOTE | 2019-06-18 12:50 | P.PCN ---
Date of Procedure: 06/18/19 Procedure(s) Performed: Brief history: Patient is a pleasant 79-year-old white female scheduled for an elective upper endoscopy as well as colonoscopy as a part of evaluation of iron deficiency anemia. She denies any GI symptoms. Procedure performed: Esophagogastroduodenoscopy with biopsy Colonoscopy Preoperative diagnosis: Iron deficiency anemia Anesthesia: [facility] Procedure: After informed consent was obtained from the patient was brought into the endoscopy unit and IV sedation was administered by anesthesia under continuous monitoring. Initially upper endoscopy was done. The Olympus GF 160 video endoscope was inserted inserted into the mouth and esophagus intubated without any difficulty and was gradually advanced into the stomach and duodenum and carefully examined. The bulb and second part of the duodenum appeared normal. Biopsies were done from this area to rule out celiac disease. The scope was then withdrawn into the stomach adequately insufflated with air and upon careful examination the antrum and body, cardia and fundus had mild diffuse gastritis and biopsies were done from the antrum of the stomach. The scope was then withdrawn into the esophagus. The GE junction was located at 40 cm to the incisors. It appeared regular with no erythema erosions or ulcerations. Rest of the esophagus appeared normal. Patient tolerated the procedure well. At this time the patient continued to remain sedation. Initial digital rectal examination was normal. Olympus CF 160 video colonoscope was then inserted into the rectum and gradually advanced to the cecum without any difficulty. Careful examination was performed as the scope was gradually being withdrawn. The prep was excellent. The cecum, ascending colon, transverse colon, descending colon, sigmoid colon and rectum appeared normal. Retroflexion was performed in the rectum and no lesions were noted. Scattered sigmoid diverticulosis seen. Patient tolerated the procedure well. Impression: 1. Upper endoscopy revealed mild diffuse gastritis. 2. Colonoscopy revealed scattered sigmoid diverticulosis but no evidence of colorectal neoplasia Recommendations: Findings of this examination were discussed with the patient as well as her family. She was advised to follow with the biopsy results. She will start on iron supplements every day and monitor CBC on a monthly basis.
[2019-06-18 13:25] VITALS: BP 141/88; PULSE 120
== END 2019-06-18 13:36 ==
LOC: ORWHC2ENDO 10:42
PROVIDERS: ATTEND Internal Medicine Gastroenterology
DX: K29.80 Duodenitis without bleeding (principal); K29.50 Unspecified chronic gastritis without bleeding; B96.81 Helicobacter pylori [H. pylori] as the cause of diseases classified elsewhere; K57.30 Diverticulosis of large intestine without perforation or abscess without bleeding; D50.9 Iron deficiency anemia, unspecified; I10 Essential (primary) hypertension; Z88.8 Allergy status to other drugs, medicaments and biological substances; Z88.5 Allergy status to narcotic agent; Z79.899 Other long term (current) drug therapy; Z79.1 Long term (current) use of non-steroidal anti-inflammatories (NSAID); Z87.898 Personal history of other specified conditions
CPT/HCPCS: 88305; 88342; 45378; 43239; J2001; J2704

== ENCOUNTER → 2019-08-11 | Outpatient (CLI) | payer MEDICARE, OTHER ==
--- NOTE | 2019-08-16 12:04 | MM ---
Reason for exam: follow-up at short interval from prior study. Last mammogram was performed 7 months ago. History: Patient is postmenopausal. Benign excisional biopsy of the left breast. Benign excisional biopsy of the right breast. Took estrogen for 24 years. Took progesterone for 24 years. Physical Findings: Nurse did not find any significant physical abnormalities on exam. MG Diagnostic Mammo LT w CAD CC, MLO, LM, CC with magnification, and LM with magnification view(s) were taken of the left breast. Prior study comparison: January 22, 2019, left breast MG work up mamm w CAD LT. December 24, 2018, bilateral MG screening mammo w CAD. The breast tissue is heterogeneously dense. This may lower the sensitivity of mammography. The posterior depth left lower outer quadrant calcifications have increased from the prior and now warrant biopsy. These measure a total distance of 1.7cm. The upper outer quadrant linear calcifications at middle depth appear to be present on exams as far back as 2012. These results were verbally communicated with the patient and result sheet given to the patient on 08/11/19. ASSESSMENT: Suspicious, BI-RAD 4 RECOMMENDATION: Stereotactic core biopsy of the left breast. Called Dr. Ruiz's office with mammographic findings and has scheduled an appointment for the patient for 09/02/19 at 8:[address] Parsons. Biopsy scheduled for 08/26/19 at 10:20. PRELIMINARY REPORT CALLED AND FAXED TO DR. PARSONS ON 08/11/19.
== END | disposition home or self-care (01) ==
LOC: RADMAMWWP 12:40
PROVIDERS: ATTEND Family Medicine
DX: R92.8 Other abnormal and inconclusive findings on diagnostic imaging of breast (principal)
CPT/HCPCS: 77065

== ENCOUNTER → 2019-10-13 | Day surgery (SDC) | payer MEDICARE, OTHER ==
[2019-10-13 12:52] VITALS: BP 144/78; PULSE 69; RESP 16; TEMP 97.7
--- NOTE | 2019-10-22 10:09 | MM ---
Stereotactic Mammotome core biopsy left breast. HISTORY: Indeterminate microcalcifications The calcifications in question within the left breast were targeted by the undersigned. Procedure was performed by the undersigned. Informed consent was obtained and all of the patients questions were answered. The standard sterile technique was utilized and appropriate local anesthesia was obtained with 1% lidocaine. Mammotome probe was advanced and multiple core samples were obtained and sent to pathology for interpretation. Microclip marker was deployed at the site of biopsy. Post procedural mammogram demonstrates appropriate deployment of radiopaque clip marker. The patient tolerated the procedure well and left the department in stable condition. Pathology results are pending. IMPRESSION: Successful stereotactic core biopsy left breast with pathology results pending. Pathology Results: Benign LEFT BREAST LESION, NEEDLE CORE BIOPSY: Benign breast parenchyma with fibrocystic changes and fibroadenomatoid hyperplasia. Intraductal calcifications are identified. Recommendation Follow up mammogram of the left breast in 6 months. TOMAS
== END ==
LOC: RADMAMWWP 09:43
PROVIDERS: ATTEND Surgery
DX: N60.12 Diffuse cystic mastopathy of left breast (principal); R92.1 Mammographic calcification found on diagnostic imaging of breast; N62 Hypertrophy of breast
CPT/HCPCS: 88305; 19081; A4648; J2001

== ENCOUNTER → 2019-10-13 | Outpatient (CLI) | payer MEDICARE, OTHER | END | disposition home or self-care (01) | LOC: LABWHC1 12:27 | PROVIDERS: ATTEND Family Medicine | DX: Z11.59 Encounter for screening for other viral diseases (principal); U07.1 COVID-19 | CPT/HCPCS: 87635 ==

== ENCOUNTER → 2020-04-17 | Outpatient (CLI) | payer MEDICARE, OTHER ==
--- NOTE | 2020-04-17 11:47 | MM ---
Reason for exam: follow-up at short interval from prior study. Last mammogram was performed 8 months ago. History: Patient is postmenopausal. Benign MG stereo VAD BX LT of the left breast, October 13, 2019. Benign excisional biopsy of the left breast. Benign excisional biopsy of the right breast. Took estrogen for 24 years. Took progesterone for 24 years. Physical Findings: Nurse did not find any significant physical abnormalities on exam. MG Diagnostic Mammo w CAD NIKI Bilateral CC and MLO view(s) were taken. Prior study comparison: August 11, 2019, left breast MG diagnostic mammo LT w CAD. January 22, 2019, left breast MG work up mamm w CAD LT. The breast tissue is heterogeneously dense. This may lower the sensitivity of mammography. Scattered calcifications. There is no discrete abnormality. These results were verbally communicated with the patient and result sheet given to the patient on 04/17/20. ASSESSMENT: Benign, BI-RAD 2 RECOMMENDATION: Routine screening mammogram of both breasts in 1 year.
== END | disposition home or self-care (01) ==
LOC: RADMAMWWP 10:02
PROVIDERS: ATTEND Surgery
DX: R92.8 Other abnormal and inconclusive findings on diagnostic imaging of breast (principal)
CPT/HCPCS: 77066

== ENCOUNTER → 2020-04-27 | Outpatient (CLI) | payer MEDICARE, OTHER ==
[2020-04-27 13:42] LABS: Basophils % (A) 1 %; Eosinophils # (A) 0.2 k/uL (0-0.7); Eosinophils % (A) 4 %; HGB 12.9 gm/dL (11.4-16.0); Lymphocytes # (A) 1.7 k/uL (1.0-4.8); Lymphocytes % (A) 29 %; MCH 30.4 pg (25.0-35.0); MCHC 33.2 g/dL (31.0-37.0); Mean Platelet Volume 8.2; Monocytes # (A) 0.4 k/uL (0-1.0); Monocytes % (A) 7 %; Neutrophils # (A) 3.4 k/uL (1.3-7.7); Neutrophils % (A) 57 %; Platelet Count 174 k/uL (150-450); RBC 4.25 m/uL (3.80-5.40); RDW 12.4 % (11.5-15.5); WBC 5.9 k/uL (3.8-10.6)
[2020-04-27 13:45] LABS: MCV 91.6 fL (80.0-100.0)
[2020-04-27 13:48] LABS: Potassium 4.7 mmol/L (3.5-5.1)
== END | disposition home or self-care (01) ==
LOC: LABPAT 12:21
PROVIDERS: ATTEND Orthopaedic Surgery
DX: Z01.818 Encounter for other preprocedural examination (principal); M65.4 Radial styloid tenosynovitis [de Quervain]
CPT/HCPCS: 36415; 80051; 85025

== ENCOUNTER 2020-05-19 08:38 | Day surgery (SDC) | payer MEDICARE, OTHER ==
[2020-05-17 13:17] VITALS: BMI 27.4
--- NOTE | 2020-05-18 10:11 | HP ---
HISTORY AND PHYSICAL CHIEF COMPLAINT: Right wrist pain. HISTORY OF PRESENT ILLNESS: Patient is an 80-year-old, right-hand dominant, retired female who presents with progressive right wrist pain for the past several months. She notes she is unable to drawer in hand her grasped without having pain. She has tried bracing, medications, and in addition to an injection with only partial temporary relief. She notes the pain limits her normal function and activities. PAST MEDICAL HISTORY: Significant for hypertension. PAST SURGICAL HISTORY: Significant for right knee arthritis, arthroscopic surgery, and in addition the right shoulder surgery. CURRENT MEDICATIONS: Lisinopril, Mobic and Skelaxin. She has sensitivity to CODEINE, MOTRIN, ULTRAM, FLEXERIL; however, no noel drug allergies. FAMILY HISTORY: Significant for heart disease. SOCIAL HISTORY: Negative for current tobacco or alcohol use. 16 POINT REVIEW OF SYSTEMS: Otherwise reviewed and is noncontributory. PHYSICAL EXAMINATION: On examination, the patient is approximately 5 foot 3, 160 pounds of endomorphic habitus. HEENT: Exam is nonfocal. NECK: Supple. She is nontender about the right shoulder and elbow. On examination of her right wrist, range of motion, flexion 60 degrees, extension is 75 degrees. She is tender over the first dorsal compartment. She has mild swelling in that area. Ragini is positive. Grind test is negative. Carpal tunnel compression test is negative. Her distal neurovascular appears intact in the right upper extremity. IMPRESSION: Right wrist de Quervain tenosynovitis. RECOMMENDATIONS: I talked to the patient at length regarding her condition and treatment options. At this point she remains quite symptomatic despite previous conservative measures. After thorough discussion, she opts to proceed with surgery. We will plan to proceed with right first dorsal compartment release/de Quervain release. We will likely perform that as an outpatient procedure. Risks and benefits were discussed at length in layman's terms. MMODL / IJN: [id number] /
[~2020-05-19 08:38] MED LIST changes: +DEXAMETHASONE SOD PHOSPHATE 4 MG/ML 1 ML VIAL IV ONE; +MIDAZOLAM 2 MG/2 ML VIAL IV PRN; +ONDANSETRON 4 MG/2 ML VIAL IVP ONE; +fentaNYL (PF) 50 MCG/ML 2 ML AMP IV PRN
[2020-05-19 09:20] VITALS: TEMP 98.1
[2020-05-19] MEDS ORDERED: LACTATED RINGERS 1,000 ML IV ONE (09:20)
[2020-05-19] MEDS ORDERED: MIDAZOLAM 2 MG/2 ML VIAL ONE (10:56)
[2020-05-19] MEDS ORDERED: fentaNYL (PF) 50 MCG/ML 2 ML AMP ONE (10:56)
[2020-05-19] MEDS ORDERED: PROPOFOL 10 MG/ML 20 ML VIAL IV ONE (10:56)
[2020-05-19] MEDS ORDERED: BUPIVACAINE (PF) 0.25% 30 ML VIAL SQ ONE (10:56)
--- NOTE | 2020-05-19 11:33 | P.OP ---
Date of Procedure: 05/19/20 Preoperative Diagnosis: Right wrist de Quervain's tenosynovitisrecalcitrant Postoperative Diagnosis: Same Procedure(s) Performed: Right wrist de Quervain's releasefirst dorsal compartment Anesthesia: MAC, local Surgeon: Ken Thomas Estimated Blood Loss (ml): 1 Pathology: none sent Condition: stable Disposition: PACU Indications for Procedure: The patient is an 80-year-old female presents with progressivepersistent right wrist pain secondary to de Quervain's tenosynovitis despite conservative measures. A discussion of the risks and benefits of operative intervention versus continued conservative measures was made with the patient. She notes she is quite symptomatic and opted to proceed with surgery. Operative risks to include infection, neurovascular injury, recurrence of symptoms and need for subsequent procedures was discussed. Informed consent was obtained. Operative Findings: As below Description of Procedure: The patient was brought to the operating room, and after induction of IV sedation the right upper extremity was prepped and draped in normal fashion. A 2 cm incision was then planned along the radial aspect of the right wrist over the first dorsal compartment. 5 mL of quarter percent plain Marcaine was injected proximal to the proposed incision site. The tourniquet was inflated to 250 mmHg. Skin was then incised sharply. The subcu changed tissues were divided bluntly. Electrocautery was used for hemostasis. The first dorsal compartment was then opened sharply. 2 tendon slips of the abductor pollicis longus were noted along with one slip of the extensor pollicis brevis. A por tion of the tendon sheath was excised sharply. A felt there was adequate release at this point proximal and distally. The wound was irrigated normal saline. Subcu tissues reapproximated with interrupted 3-0 Vicryl suture. Skin was approximated with 4-0 simple nylon sutures. A sterile dressing was applied in addition to a thumb spica splint. The tourniquet was deflated less than 50 minutes total tourniquet time. Patient was awoken from sedation and transferred to recovery room in good condition. Blood loss was estimated 1 mL. No complications were incurred. Sponge and needle counts were correct at the end of the case.
[2020-05-19 11:34] VITALS: RESP 16
[2020-05-19 12:06] VITALS: BP 132/60; PULSE 68
== END 2020-05-19 12:26 | disposition home or self-care (01) ==
LOC: OR 08:38
PROVIDERS: ATTEND Orthopaedic Surgery
DX: M65.4 Radial styloid tenosynovitis [de Quervain] (principal); I10 Essential (primary) hypertension; M17.11 Unilateral primary osteoarthritis, right knee; K75.4 Autoimmune hepatitis; Z88.5 Allergy status to narcotic agent; Z88.6 Allergy status to analgesic agent; Z88.8 Allergy status to other drugs, medicaments and biological substances; Z98.890 Other specified postprocedural states; Z79.899 Other long term (current) drug therapy; Z79.1 Long term (current) use of non-steroidal anti-inflammatories (NSAID); Z86.73 Personal history of transient ischemic attack (TIA), and cerebral infarction without residual deficits; Z82.49 Family history of ischemic heart disease and other diseases of the circulatory system
CPT/HCPCS: 25000; J2250; J1100; J2405; J0690; J3010; J2704

== ENCOUNTER → 2020-09-28 | Outpatient (CLI) | payer MEDICARE, OTHER ==
--- NOTE | 2020-09-29 09:26 | XR ---
EXAMINATION TYPE: XR cervical spine comp DATE OF EXAM: 09/28/2020 COMPARISON: None HISTORY: 80-year-old female [id number], left neck pain and tightness, cervicalgia. TECHNIQUE: 5 views FINDINGS: Normal odontoid view. Some degenerative change at the C1 dens articulation. No gradient space widenin g or prevertebral soft tissue swelling. Moderate facet degenerative changes plus facet and uncoverteb ral joint arthropathy. Corticated bone fragments measuring 1.6 and 0.9 cm the posterior midline soft tissues at the C5 and C6 levels suggests sequela of old injury. Degenerative grade 1 anterolisthesis C3-C4 and C4-C5. On the right, there is mild bony neuroforaminal narrowing at C5-C6. On the left, mor e moderate bony neuroforaminal narrowing at C5-C6 and C6-C7. IMPRESSION: Moderate multilevel spondylotic change. Degenerative grade 1 anterolisthesis C3-C4 and C4-C5. Mild ri ght-sided neuroforaminal narrowing at C5-C6 and moderate on the left at C5-C6 and C6-C7.
== END | disposition home or self-care (01) ==
LOC: RADXRYALE 15:55
PROVIDERS: ATTEND Physician Assistant Medical
DX: M99.71 Connective tissue and disc stenosis of intervertebral foramina of cervical region (principal); M47.812 Spondylosis without myelopathy or radiculopathy, cervical region
CPT/HCPCS: 72050

== ENCOUNTER → 2021-04-30 | Outpatient (CLI) | payer MEDICARE ==
--- NOTE | 2021-04-30 16:08 | XR ---
EXAMINATION TYPE: XR knee complete RT DATE OF EXAM: 04/30/2021 COMPARISON: NONE HISTORY: 81-year-old female [id number], right knee pain TECHNIQUE: 3 views FINDINGS: Extensor mechanism is intact. At least moderate narrowing of cartilage and joint space within the med ial compartment. No acute fracture, subluxation, or dislocation. Extensor mechanism is intact. IMPRESSION: At least moderate narrowing of cartilage and joint space within the medial compartment. Actual cartil age loss may be underestimated on this nonweightbearing view. No acute osseous abnormality seen.
== END | disposition home or self-care (01) ==
LOC: RADXRYALE 15:34
PROVIDERS: ATTEND Physician Assistant Medical
DX: M25.861 Other specified joint disorders, right knee (principal)

== ENCOUNTER → 2021-06-19 | Outpatient (CLI) | payer MEDICARE ==
--- NOTE | 2021-06-21 10:25 | MM ---
Reason for exam: screening (asymptomatic). Last mammogram was performed 1 year and 2 months ago. History: Patient is postmenopausal. Benign MG stereo VAD BX LT of the left breast, October 13, 2019. Benign excisional biopsy of the left breast. Benign excisional biopsy of the right breast. Took estrogen for 24 years. Took progesterone for 24 years. Physical Findings: A clinical breast exam by your physician is recommended on an annual basis and results should be correlated with mammographic findings. MG Screening Mammo w CAD Bilateral CC, MLO, and XCCL view(s) were taken. Prior study comparison: April 17, 2020, bilateral MG diagnostic mammo w CAD NIKI. August 11, 2019, left breast MG diagnostic mammo LT w CAD. The breast tissue is heterogeneously dense. This may lower the sensitivity of mammography. Benign appearing bilateral calcifications. Loosly grouped calcifications left breast upper central position. Finding: There are loosley grouped/clustered calcifications in the upper quadrant, central position of the left breast. Benign appearing bilateral calcifications. Increase in number of calcifications since April 17, 2020 and August 11, 2019. ASSESSMENT: Incomplete: need additional imaging evaluation, BI-RAD 0 RECOMMENDATION: Special view mammogram of the left breast. [facility] will attempt to contact patient to return for supplemental views.
== END | disposition home or self-care (01) ==
LOC: RADMAMWWP 10:35
PROVIDERS: ATTEND Family Medicine
DX: Z12.31 Encounter for screening mammogram for malignant neoplasm of breast (principal); Z78.0 Asymptomatic menopausal state
CPT/HCPCS: 77067

== ENCOUNTER → 2021-06-25 | Outpatient (CLI) | payer MEDICARE ==
--- NOTE | 2021-06-25 10:25 | MM ---
Reason for exam: additional evaluation requested from abnormal screening. Last mammogram was performed less than 1 month ago. History: Patient is postmenopausal. Benign MG stereo VAD BX LT of the left breast, October 13, 2019. Benign excisional biopsy of the left breast. Benign excisional biopsy of the right breast. Took estrogen for 24 years. Took progesterone for 24 years. Physical Findings: Nurse did not find any significant physical abnormalities on exam. MG Work Up Mamm w CAD LT CC with magnification, LM with magnification, and LM view(s) were taken of the left breast. Prior study comparison: August 11, 2019, left breast MG diagnostic mammo LT w CAD. December 24, 2018, bilateral MG screening mammo w CAD. December 02, 2017, bilateral MG screening mammo w CAD. The breast tissue is heterogeneously dense. This may lower the sensitivity of mammography. Finding: There are regional fine calcifications in the upper outer quadrant, posterior position of the left breast. These are adjacent to a biopsy marker. These are stable. No significant changes in finding since August 11, 2019, December 24, 2018, and December 02, 2017. These results were verbally communicated with the patient and result sheet given to the patient on 06/25/21. ASSESSMENT: Probably benign, BI-RAD 3 RECOMMENDATION: Follow-up diagnostic mammogram of the left breast in 6 months. ( + magnification views)
== END | disposition home or self-care (01) ==
LOC: RADMAMWWP 09:35
PROVIDERS: ATTEND Family Medicine
DX: R92.1 Mammographic calcification found on diagnostic imaging of breast (principal); Z78.0 Asymptomatic menopausal state
CPT/HCPCS: 77065

== ENCOUNTER → 2021-07-23 | Outpatient (CLI) | payer MEDICARE ==
--- NOTE | 2021-07-23 12:22 | XR ---
EXAMINATION TYPE: XR ankle complete LT, 3 views DATE OF EXAM: 07/23/2021 Comparison: 06/19/2017 Clinical History: 81-year-old female [id number] LT ANKLE/FOOT PAIN Findings: There is anterior soft tissue swelling. Either mild spurring subtle irregularity along the anterior l ip of the tibial tuberosity. Tiny plantar heel spur. Some stable mild calcification of the distal Ach illes tendon suggesting sequela of chronic tendinopathy or prior injury. Lateral malleolar soft tissue swelling. No acute fracture, subluxation, dislocation. Impression: 1. Lateral and anterior soft tissue swelling. Correlate for any point tenderness along the anterior l ip of the distal tibia to exclude a subtle nondisplaced corner or avulsion fracture here. 2. Otherwise, no acute osseous abnormality seen.
== END | disposition home or self-care (01) ==
LOC: RADXRYALE 10:30
PROVIDERS: ATTEND Physician Assistant
DX: M25.572 Pain in left ankle and joints of left foot (principal); M79.89 Other specified soft tissue disorders

== ENCOUNTER → 2021-08-06 | Outpatient (CLI) | payer MEDICARE ==
--- NOTE | 2021-08-06 15:08 | XR ---
EXAMINATION TYPE: XR ankle complete LT DATE OF EXAM: 08/06/2021 COMPARISON: 07/23/2021 HISTORY: Pain TECHNIQUE: 3 view left ankle FINDINGS: No acute or subacute fractures are evident. Joint spaces preserved. Previous suspected ante rior tibial fractures not identified on the current exam. Tiny plantar calcaneal heel spur is present . Follow up exams can be performed as clinically indicated. IMPRESSION: 1. No acute osseous abnormality left ankle. 2. Tiny plantar calcaneal heel spur.
== END | disposition home or self-care (01) ==
LOC: RADXRYALE 11:29
PROVIDERS: ATTEND Physician Assistant
DX: M77.32 Calcaneal spur, left foot (principal)

== ENCOUNTER → 2021-12-11 | Outpatient (CLI) | payer MEDICARE ==
--- NOTE | 2021-12-11 10:02 | MM ---
Reason for Exam: Follow-up at short interval from prior study. Last screening mammogram was performed 6 month(s) ago. Patient History: Menarche at age 14. First Full-Term at age 16. Postmenopausal. Patient used Estrogen for 24 years. Patient used Progesterone for 24 years. Benign Excisional Biopsy on the right side. Benign Excisional Biopsy on the left side. 10/13/2019, Benign Core Biopsy on the left side. Risk Values: Cristina 5 year model risk: 1.5%. NCI Lifetime model risk: 1.8%. Prior Study Comparison: 12/02/2017 Bilateral Screening Mammogram, [facility]. 12/24/2018 Bilateral Screening Mammogram, [facility]. 01/22/2019 Left Diagnostic Mammogram, [facility]. 08/11/2019 Left Diagnostic Mammogram, [facility]. 04/17/2020 Bilateral Diagnostic Mammogram, [facility]. 06/19/2021 Bilateral Screening Mammogram, [facility]. 06/25/2021 Left Diagnostic Mammogram, [facility]. Tissue Density: Left: The breast tissue is heterogeneously dense. This may lower the sensitivity of mammography. Findings: Analyzed By CAD. Grouped microcalcifications posterior lower outer quadrant left breast remain unchanged for 6 months. These appear mostly punctate and loosely grouped. Continued follow-up can be performed. Additional benign oil cyst and vascular calcifications are noted. Microclip 4 posterior medial left breast from prior biopsy. No significant change from prior exams. Overall Assessment: Probably benign, BI-RAD 3 Management: Diagnostic Mammogram of both breasts in 6 months. 1. Diagnostic bilateral mammograms in 6 months (annual exam of the right breast and total one-year follow-up left breast). 2. Patient should continue monthly self breast exams. A clinical breast exam by your physician is recommended on an annual. 3. This exam should not preclude additional follow-up of suspicious palpable abnormalities. Electronically signed and approved by: Ahmet Hoffman M.D. Radiologist
--- NOTE | 2021-12-11 17:39 | BD ---
EXAMINATION TYPE: Axial Bone Density DATE OF EXAM: 12/11/2021 CLINICAL HISTORY: 81 years year old Female. ICD-10 CODE: [id number] Other specified disorders of bone Height: 5 FT 2 IN Weight: 146 FRAX RISK QUESTIONS: Alcohol (3 or more units per day): NO Family History (Parent hip fracture): NO Glucocorticoids (More than 3mos): NO (Ex: prednisone, prednisolone, methylprednisolone, dexamethasone, and hydrocortisone). History of Fracture in Adulthood: YES Secondary Osteoporosis: 1. Type 1 Diabetes: NO 2. Hyperthyroidism: NO 3. Menopause before 45: NO 4. Malnutrition: NO 5. Chronic liver disease: NO Rheumatoid Arthritis: NO Current Tobacco Use: NO RISK FACTORS HISTORY OF: Surgery to Spine/Hip(right/left)/Wrist (right/left): NO Family History of Osteoporosis: NO Active: YES Diet low in dairy products/other sources of calcium: NO Postmenopausal woman: YES Take estrogen and/or progesterone medications: NONE NOW Lost more than 2 inches in height since high school: YES Frequent falls: NO Poor Health: GOOD Hyperparathyroidism: NO Adrenal Insufficiency: NO MEDICATIONS: Additional Medications: MOBIC, SKELAXIN, LISINOPRIL, METAXALONE, MONTELUKAST, BABY ASPIRIN, Additional History: EXAM MEASUREMENTS: Bone mineral densitometry was performed using the Node Management System. Bone mineral density as measured about the Lumbar spine is: ----- L1-L4(G/cm2): 1.074 T Score Values are as follows: ----- L1: -2.0 ----- L2: -1.3 ----- L3: -1.0 ----- L4: 0.3 ----- L1-L4: -0.9 Bone mineral density has: DECREASED -5.5 % since study of: 2018 Bone mineral density about the R hip (g/cm2): 0.760 Bone mineral density about the L hip (g/cm2): 0.761 T Score values are as follows: -----R Neck: -2.0 -----L Neck: -2.0 -----R Total: -1.0 -----L Total: -1.1 Bone mineral density has: DECREASED -8.8 % since study of: 2018 FRAX%s: The graph provided illustrates a 16.1 % chance for a major osteoporotic fx and a 5.0 % chance for the hips probability for fx in 10 years time. IMPRESSION: Osteopenia (T Score between -2.5 and -1). There is slightly increased risk of fracture and the patient may be considered for treatment. Re-Screen 2-5 years. NOTE: T-SCORE=SD OF THE YOUNG ADULT MEAN.
== END | disposition home or self-care (01) ==
LOC: RADMAMWWP 09:24
PROVIDERS: ATTEND Family Medicine
DX: R92.8 Other abnormal and inconclusive findings on diagnostic imaging of breast (principal); M85.89 Other specified disorders of bone density and structure, multiple sites
CPT/HCPCS: 77065; 77080

== ENCOUNTER 2022-10-29 09:48 | Day surgery (SDC) | payer MEDICARE, OTHER ==
--- NOTE | 2022-10-28 09:04 | P.HPOR ---
History of Present Illness H&P Date: 10/28/22 Chief Complaint: Right knee pain The patient is an 82-year-old female who presents with progressive right knee pain for the past several years worsening recently. She notes medial pain and swelling particularly with weightbearing activities. She notes she limps and it interferes with her normal function and activities. She feels like it's worsening. She's tried previous medications along with injections with only partial temporary relief. Review of Systems Negative except as in HPI Past Medical History Past Medical History: Hypertension, Liver Disease, Memory Impairment, Osteoarthritis (OA) Additional Past Medical History / Comment(s): hx. autoimmune hepatitis, hx. vertigo, takes supplements for memory History of Any Multi-Drug Resistant Organisms: MRSA Date of last positivie culture/infection: 06/22/2015 MDRO Source:: urine Past Surgical History: Bladder Surgery, Breast Surgery, Hysterectomy, Orthopedic Surgery Additional Past Surgical History / Comment(s): rt shoulder arthroscopy, NIKI knee surg. arthroscopy,niki breast bx, BLADDER SUSPENSION Past Anesthesia/Blood Transfusion Reactions: Motion Sickness Additional Past Anesthesia/Blood Transfusion Reaction / Comment(s): no hx blood transfusion Smoking Status: Never smoker - Past Family History Father Family Medical History: Cancer Additional Family Medical History / Comment(s): stomach Mother Family Medical History: Osteoarthritis (OA) Additional Family Medical History / Comment(s): blockage in artery in neck Sister(s) Family Medical History: Pneumonia Medications and Allergies Home Medications Medication Instructions Recorded Confirmed Type azaTHIOprine [Imuran] 50 mg PO DAILY 06/17/19 10/24/22 History lisinopriL 20 mg PO DAILY 05/17/20 10/24/22 History Aspirin 81 mg PO DAILY 10/24/22 10/24/22 History Cranberry Fruit Concentrate [Azo 250 mg PO DAILY 10/24/22 10/24/22 History Cranberry] Fexofenadine HCl [Savanah Allergy] 180 mg PO DAILY 10/24/22 10/24/22 History Folate 1 tab PO DAILY 10/24/22 10/24/22 History Multivitamins, Thera [Multivitamin 1 tab PO DAILY 10/24/22 10/24/22 History (formulary)] Turmeric Root Extract [Turmeric] 500 mg PO DAILY 10/24/22 10/24/22 History Vitamin E Acetate [Vitamin E] 134 mg PO DAILY 10/24/22 10/24/22 History Allergies Allergy/AdvReac Type Severity Reaction Status Date / Time codeine AdvReac Nausea & Verified 10/24/22 12:21 Vomiting cyclobenzaprine HCl AdvReac Nausea & Verified 10/24/22 12:21 [From Flexeril] Vomiting ibuprofen [From Motrin] AdvReac Nausea & Verified 10/24/22 12:21 Vomiting morphine AdvReac Nausea & Verified 10/24/22 12:21 Vomiting pentazocine AdvReac Nausea & Verified 10/24/22 12:21 Vomiting tramadol HCl [From Ultram] AdvReac Nausea & Verified 10/24/22 12:21 Vomiting Physical Examination - Knee right Appearance: effusion Effusion grade: trace Varus alignment in stance: 5 degrees Tenderness with palpation: anterior, medial Pain: throughout ROM Gait: limping ROM: extension: -10 degrees ROM: flexion: 120 degrees Crepitus with motion: Yes Strength: extension: 5/5 Strength: flexion: 5/5 Meniscal tests: medial meniscal tests: positive, medial joint line pain: positive Results The patient is a well-developed well-nourished female, approximate 5 foot 3, 155 pounds of mesomorphic habitus. HEENT exam is nonfocal. Neck is supple. She has painless passive motion of the right hip. Straight leg raise is negative. Her distal neurovascular appears intact in the right lower extremity. - Diagnostic results Knee x-ray: image reviewed (3 views of the right knee obtained in the office show severe medial compartment osteoarthrosis with [id number] changes and subchondral sclerosis.) Assessment and Plan Assessment: Right knee severe medial compartment osteoarthrosis Plan: I talked with the patient with regarding her condition along with treatment options. At this point she's having persistent pain and mechanical symptoms related to her osteoarthrosis despite previous conservative measures. After mya deng discussion, she opts to proceed with surgery. Risks and benefits were discussed at length in layman's terms. We will plan to proceed with right total knee arthroplasty. We will institute DVT prophylaxis postoperatively.
[~2022-10-29 09:48] MED LIST changes: +ACETAMINOPHEN TAB 500 MG TAB PO PRN; +HYDROmorphone 0.5 MG/0.5 ML SYRINGE IVP PRN; -LACTATED RINGERS 1,000 ML IV SCH; +LIDOCAINE 1% (10MG/ML) FOR IV START INTRADERMA PRN; +MELOXICAM 7.5 MG TAB PO PRN; +TRANEXAMIC ACID IN NACL,ISO-OS 1,000 MG in SALINE 1 100ML.BAG IVPB PRN; -fentaNYL (PF) 50 MCG/ML 2 ML AMP IV PRN
[2022-10-29] MEDS: LACTATED RINGERS 1,000 ML IV SCH (10:24)
[2022-10-29] MEDS ORDERED: MIDAZOLAM 2 MG/2 ML VIAL IVP ONE (11:28)
[2022-10-29] MEDS ORDERED: fentaNYL (PF) 50 MCG/ML 2 ML AMP IVP ONE (11:30)
[2022-10-29] MEDS ORDERED: TRANEXAMIC ACID IN NACL,ISO-OS 1,000 MG/100 ML BAG ONE (13:06)
[2022-10-29] MEDS ORDERED: fentaNYL (PF) 50 MCG/ML 2 ML AMP ONE (13:06)
[2022-10-29] MEDS ORDERED: ROPIVACAINE 5 MG/ML 30 ML VIAL ONE (13:06)
[2022-10-29] MEDS ORDERED: PROPOFOL 10 MG/ML 20 ML VIAL IV ONE (13:06)
[2022-10-29] MEDS ORDERED: SODIUM CHLORIDE 0.9% (PF) 10 ML VIAL ONE (13:06)
--- NOTE | 2022-10-29 13:12 | P.ANPRN ---
Procedure Note - Anesthesia - Nerve Block Performed Right Adductor Canal Time Out Performed: Yes (:) Date of Procedure: 10/29/22 Procedure Start Time: Procedure Stop Time: Location of Patient: PreOp Indication: Acute Post-Operative Pain, Requested by Surgeon (Dr Thomas) Sedation Type: Sedate with meaningful contact maintained Preparation: Sterile Prep, Sterile Dressing Position: Supine Catheter: Indwelling Needle Types: Pajunk Needle Gauge: 21 Ultrasound used to visualize needle placement: Yes Ultrasound used to observe medication spread: Yes Injectate: 0.5% Ropivacaine (see comment for volume) (20cc) Blood Aspirated: No Pain Paresthesia on Injection Noted: No Resistance on Injection: Normal Image Stored and Saved: Yes Events: Uneventful and Well Tolerated
--- NOTE | 2022-10-29 13:14 | P.ANPRN ---
Procedure Note - Anesthesia - Nerve Block Performed Right iPack Time Out Performed: Yes Date of Procedure: 10/29/22 Procedure Start Time: 11:35 Procedure Stop Time: 11:40 Location of Patient: PreOp Indication: Acute Post-Operative Pain, Requested by Surgeon (Dr Thomas) Sedation Type: Sedate with meaningful contact maintained Preparation: Sterile Prep Position: Supine Catheter: None Needle Types: Pajunk Needle Gauge: 21 Ultrasound used to visualize needle placement: Yes Ultrasound used to observe medication spread: Yes Injectate: 0.5% Ropivacaine (see comment for volume) (15cc +5cc PF Normal saline) Blood Aspirated: No Pain Paresthesia on Injection Noted: No Resistance on Injection: Normal Image Stored and Saved: Yes Events: Uneventful and Well Tolerated
[2022-10-29] MEDS ORDERED: NALOXONE 0.4 MG/ML 1 ML VIAL IV PRN (14:48)
[2022-10-29] MEDS ORDERED: MAGNESIUM HYDROXIDE 2,400 MG/10 ML CUP PO PRN (14:48)
[2022-10-29] MEDS ORDERED: HYDROcodone/APAP 5-325MG 1 EACH TAB PO PRN ×2 (14:48)
[2022-10-29] MEDS ORDERED: HYDROmorphone 0.5 MG/0.5 ML SYRINGE IVP PRN ×2 (14:48)
--- NOTE | 2022-10-29 15:06 | P.OP ---
Date of Procedure: 10/29/22 Preoperative Diagnosis: Right knee severe tricompartmental osteoarthrosis Postoperative Diagnosis: Same Procedure(s) Performed: Right total knee arthroscopycementedcruciate retaining Implants: Depuy Attune size 5 narrow cemented femoral component, size 4 cemented tibial component, 10 mm articular surface, 32 mm cemented patellar component. This was a cruciate retaining implant. Anesthesia: regional, spinal Surgeon: Ken Thomas Forensic Economist #1: Raji Mills Estimated Blood Loss (ml): 50 Pathology: none sent Condition: stable Disposition: PACU Indications for Procedure: The patient's a 82-year-old female who presents with progressive right knee pain secondary to osteoarthrosis despite conservative measures. A discussion of the risks and benefits of operative intervention versus continued conservative measures was made with patient. She opted to proceed with surgery. Operative risks to include infection, neurovascular injury, development of blood clots, fracture, component loosening, component failure and possible need for subsequent procedures was discussed. Informed consent was obtained. Operative Findings: As below Description of Procedure: The patient was brought to the operating room, and after induction of spinal anesthesia the right lower extremity was prepped and draped in a normal fashion. The tourniquet was inflated to 270 mmHg. A longitudinal incision extending 3 finger breaths above the superior pole of the patella extending to the medial aspect the tibial tubercle was then made. The skin and subcutaneous tissues were divided sharply. Electrocautery was used for hemostasis. A medial parapatellar arthrotomy was then performed. The medial soft tissues to include the superficial and deep portions of the medial collateral ligament as well as the medial hamstring tendons were elevated subperiosteally. The proximal medial tibia osteophytes were carefully removed. The patella was everted. The knee was flexed. A portion of the retropatellar fat pad was excised sharply. The anterior cruciate ligament was sacrificed. A starting hole was made in the distal femur 1 cm anterior to the posterior cruciate origin. An intramedullary femoral guide was gently inserted planning on 5 valgus distal cut with 9 mm distal resection. The cutting block was pinned in place. The distal cut was then made. The posterior referencing sizing guide was utilized. 3 of external rotation was built into the system and verified off the trans- epicondylar axis and the posterior condyles. I felt size 5 narrow was most appropriate. The cutting block was pinned in place. The anterior, posterior, and chamfer cuts were then made. The bone fragments were removed. A sulcus cut was then made with the appropriate guide. The trial size 5 femoral component was then placed and was fully seated. There was good anterior to posterior and medial to lateral fit. The distal peg holes were then drilled. The trial component was then removed. Attention was then paid towards preparing the proximal tibia. An extra medullary guide was utilized in line with the tibial shaft and second metatarsal distally. A 7 posterior slope was planned. I planned on 2 mm resection from the medial compartment. The cutting block was pinned in place. The proximal tibial cut was then made. The bone was removed in one fragment. The remnants of the medial and lateral menisci were excised the capsule junction with electrocautery. The tibia sized most appropriately at size 4. The posterior osteophytes off the distal femur were carefully removed with a curved osteotome. The trial tibial and femoral components were placed along with a 10 millimeters articular surface. I was able to obtain full flexion and extension with good stability with varus and valgus stress. After several flexion and extension cycles, the tibial rotation was marked with electrocautery in line with the medial one third of the tibial tubercle. Attention was then paid towards preparing the patella. A patella reamer was utilized taking this down to 14 mm of bone stock. A good flush cut was made. The patella sized most appropriately at 32 millimeters. The peg holes were then drilled. The trial component was placed. The knee was taken through a range of motion. I had good patellofemoral tracking with no hands technique. The trial components were then removed. The tibia was prepared in the appropriate rotation with appropriate drill and keel punch. The flexion and extension gaps were checked and felt to be symmetric. The bony surfaces were prepared with pulsatile lavage and dried. The deep tibial component was then cemented in place and was fully seated. Excess cement was removed. The femoral component was cemented in place and was fully seated. Again excess cement was removed. The trial 10 millimeters surface was then inserted in the knee was put in full extension. The patella component was cemented in place. After the cement had sufficiently hardened, the knee was again taken through a range of motion. Again there was good stability in flexion and extension with varus and valgus stress. The trial articular surface was then removed. The final articular surface was placed and was impacted. Care was taken to avoid any soft tissue interposition. Pulsatile lavage was again utilized. The tourniquet was deflated with approximately 60 minutes total tourniquet time. There was minimal drainage therefore a deep drain was not placed. The medial parapatellar arthrotomy was then closed with #2 Ethibond suture. The subcutaneous tissues were reapproximated interrupted 2-0 Vicryl sutures. The skin was reapproximated with 3-0 subarticular strata fix suture. Skin tape and adhesive was applied. A sterile dressing was applied. The patient was then awoken from sedation and transferred to recovery room in good condition. Blood loss was estimated at 50 milliliters. No complications were incurred. Sponge and needle counts were correct at the end the case. Raji HAMPTON assisted during the major components this case to include exposure, bone resection, and implantation.
[2022-10-29] MEDS ORDERED: ROPIVACAINE 1,100 MG, SODIUM CHLORIDE 0.9% 500 ML 330 ML, EMPTY PAIN BALL 1 EACH MISCELLANE PRN ×2 (15:19)
--- NOTE | 2022-10-29 15:29 | XR ---
EXAMINATION TYPE: XR knee limited RT DATE OF EXAM: 10/29/2022 COMPARISON: NONE HISTORY: 82-year-old female evaluation for postoperative abnormality and alignment TECHNIQUE: 2 views FINDINGS: Images show placement of right total knee articular plasty. Both distal femoral and proximal tibial c omponents of the prosthesis are well seated without periprosthetic fracture. Alignment grossly anatom ic. Anterior soft tissue swelling with soft tissue air as well as intra-articular air related to rece nt operation. IMPRESSION: Uncomplicated postoperative appearance right total knee arthroplasty.
--- NOTE | 2022-10-29 17:26 | P.CONS ---
History of Present Illness - Reason for Consult Consult date: 10/29/22 - History of Present Illness Patient is a 82 year old F with PMH of hypertension, autoimmune hepatitis, seasonal ALLERGIES presents to [facility] for elective surgery. She underwent right total knee arthroscopy on 10/[address] Thomas[address] [facility] [place] [facility] has been consulted for medical management of this patient. Patient reports numbness in her bilateral lower extremities. She has not urinated. She has not had a bowel movement. She has not passing gas. Pertinent positives and negatives as discussed in HPI, a complete review of systems was performed and all other systems are negative. General: non toxic, no distress, appears at stated age Derm: warm, dry Head: atraumatic, normocephalic, symmetric Eyes: EOMI, no lid lag, anicteric sclera Mouth: no lip lesion, mucus membranes moist Cardiovascular: S1S2 reg, no murmur Lungs: CTA bilateral, no rhonchi, no rales , no accessory muscle use Ext: no gross muscle atrophy, no edema, no contractures Neuro: no focal neuro deficits Psych: Alert, oriented, appropriate affect Hypertension Autoimmune hepatitis Seasonal ALLERGIES Status post right total knee arthroscopy on 10/[address] Thomas Based on my assessment of this patient, this patient meets a moderate complexity level of care. Patient has a chronic diagnosis of hypertension, autoimmune hepatitis, seasonal ALLERGIES. Hypertension: Restart Lisinopril 20 mg PO QD. Autoimmune hepatitis: Restart Azithioprine 50 mg PO QD. Seasonal ALLERGIES: Restart Savanah 180 mg PO QD. Hold ASA 81 mg PO QD while on Xarelto. DVT Prophylaxis: Xarelto 10 mg PO QD. NO CODE but OK with intubation. Daughter and Son is the decision maker if she can't make decisions for herself. I have reviewed the following learning and development consultant notes: I have reviewed the results of the following tests: I have ordered the following tests: CBC ordered for tomorrow morning. I have discussed the care of this patient with the following independent historian: I have independently interpreted the following test below: I have discussed the management of this patient with the following physician: Past Medical History Past Medical History: Hypertension, Liver Disease, Memory Impairment, Osteoarthritis (OA) Additional Past Medical History / Comment(s): hx. autoimmune hepatitis, hx. vertigo, takes supplements for memory History of Any Multi-Drug Resistant Organisms: MRSA Year Discovered:: 06/22/2015 MDRO Source:: urine Past Surgical History: Bladder Surgery, Breast Surgery, Hysterectomy, Orthopedic Surgery Additional Past Surgical History / Comment(s): rt shoulder arthroscopy, NIKI knee surg. arthroscopy,niki breast bx, BLADDER SUSPENSION Past Anesthesia/Blood Transfusion Reactions: Motion Sickness Additional Past Anesthesia/Blood Transfusion Reaction / Comm: no hx blood singh sfusion Past Psychological History: No Psychological Hx Reported Smoking Status: Never smoker Past Alcohol Use History: Occasional Additional Past Alcohol Use History / Comment(s): pt states she has not drank in a year Past Drug Use History: None Reported - Past Family History Father Family Medical History: Cancer Additional Family Medical History / Comment(s): stomach Mother Family Medical History: Osteoarthritis (OA) Additional Family Medical History / Comment(s): blockage in artery in neck Sister(s) Family Medical History: Pneumonia Medications and Allergies Home Medications Medication Instructions Recorded Confirmed Type azaTHIOprine [Imuran] 50 mg PO DAILY 06/17/19 10/29/22 History lisinopriL 20 mg PO DAILY 05/17/20 10/29/22 History Aspirin 81 mg PO DAILY 10/24/22 10/24/22 History Cranberry Fruit Concentrate [Azo 250 mg PO DAILY 10/24/22 10/29/22 History Cranberry] Fexofenadine HCl [Savanah Allergy] 180 mg PO DAILY 10/24/22 10/29/22 History Folate 1 tab PO DAILY 10/24/22 10/29/22 History Multivitamins, Thera [Multivitamin 1 tab PO DAILY 10/24/22 10/24/22 History (formulary)] Turmeric Root Extract [Turmeric] 500 mg PO DAILY 10/24/22 10/24/22 History Vitamin E Acetate [Vitamin E] 134 mg PO DAILY 10/24/22 10/24/22 History Allergies Allergy/AdvReac Type Severity Reaction Status Date / Time codeine AdvReac Nausea & Verified 10/29/22 10:56 Vomiting cyclobenzaprine HCl AdvReac Nausea & Verified 10/29/22 10:56 [From Flexeril] Vomiting ibuprofen [From Motrin] AdvReac Nausea & Verified 10/29/22 10:56 Vomiting morphine AdvReac Nausea & Verified 10/29/22 10:56 Vomiting pentazocine AdvReac Nausea & Verified 10/29/22 10:56 Vomiting tramadol HCl [From Ultram] AdvReac Nausea & Verified 10/29/22 10:56 Vomiting Physical Exam Vitals: Vital Signs Temp Pulse Pulse Resp BP Pulse Ox 10/29/22 17:10 58 L 155/63 99 10/29/22 16:55 57 L 151/72 100 10/29/22 16:40 53 L 138/65 98 10/29/22 16:25 55 L 135/70 100 10/29/22 16:10 57 L 132/53 100 10/29/22 15:45 57 L 16 126/53 99 10/29/22 15:30 59 L 16 127/52 99 10/29/22 15:15 64 16 130/52 97 10/29/22 15:03 97.4 F L 76 18 123/57 97 10/29/22 11:47 59 L 14 134/72 100 10/29/22 10:53 96.9 F L 66 18 127/60 96 Intake and Output 10/29/22 10/29/22 10/29/22 06:59 14:59 22:59 Intake Total 950 0 Output Total 50 Balance 900 0 Intake: IV 950 0 Output: Estimated Blood Loss 50 Other: Weight 64.4 kg
[2022-10-29] MEDS: SENNOSIDES-DOCUSATE SODIUM 1 EACH TAB PO SCH (21:18)
--- NOTE | 2022-10-30 06:09 | P.PN ---
Progress Note - Text The patient is status post right adductor canal catheter placement. The catheter was placed for postoperative pain control, status post total right knee arthroplasty. Ropivacaine 0.2% is infusing at 8 mLs per hour. The patient has no complaints of right lower extremity numbness or weakness. Patient's VAS score is 5 -10. This pain is primarily in the posterior aspect of the knee. Assessment: Patient's adductor canal catheter is in place and working appropriately. Plan: continue infusion and adjust it as needed.
[2022-10-30 08:57] LABS: Basophils # (A) 0.02 X 10*3/uL (0.00-0.10); Basophils % (A) 0.2 %; Eosinophils # (A) 0.01 X 10*3/uL (0.04-0.35); Eosinophils % (A) 0.1 %; HCT 33.2 % (37.2-46.3); HGB 10.9 g/dL (12.0-15.0); Immature Grans, Automated 0.7 %; Lymphocytes # (A) 1.25 X 10*3/uL (0.90-5.00); Lymphocytes % (A) 12.4 %; MCH 29.7 pg (27.0-32.0); MCHC 32.8 g/dL (32.0-37.0); MCV 90.5 fL (80.0-97.0); Mean Platelet Volume 12.3 fL (9.5-12.2); Monocytes % (A) 7.9 %; NRBC Per 100 WBC 0 /100 WBCS (0.0-0.0); Neutrophils # (A) 7.97 X 10*3/uL (1.80-7.70); Neutrophils % (A) 78.7 %; Platelet Count 199 X 10*3/uL (140-440); RBC 3.67 X 10*6/uL (4.10-5.20); WBC 10.12 X 10*3/uL (4.50-10.00)
[2022-10-30] MEDS: lisinopriL 20 MG TAB PO SCH (08:58)
[2022-10-30] MEDS: LORATADINE 10 MG TAB PO SCH (08:58)
[2022-10-30] MEDS: FOLIC ACID 1 MG TAB PO SCH (08:58)
[2022-10-30] MEDS: azaTHIOprine 50 MG TAB PO SCH (08:58)
[2022-10-30] MEDS: RIVAROXABAN 10 MG TAB PO SCH (08:58)
[2022-10-30] MEDS ORDERED: ONDANSETRON 4 MG/2 ML VIAL IVP PRN (09:24)
--- NOTE | 2022-10-30 10:42 | P.PN ---
Subjective Progress Note Date: 10/30/22 Principal diagnosis: Status post right total knee arthroplasty Patient was examined today at bedside, she is resting in a hospital bed. Patient has been dealing with nausea and vomiting this morning, she states it happened after receiving some IV pain medication. She is not eating much at this point. Patient has not been up with physical therapy. She is moving extremity well in bed today. She does note discomfort on the anterior posterior side of the knee. She denies headaches, lightheadedness, chest pain or shortness of breath Objective - Vital Signs Vital signs: Vital Signs Temp 97.7 F 10/30/22 07:16 Pulse 63 10/30/22 07:16 Resp 19 10/30/22 07:16 BP 128/53 10/30/22 07:16 Pulse Ox 97 10/30/22 07:16 FiO2 Intake & Output 10/29/22 10/30/22 10/30/22 18:59 06:59 18:59 Intake Total 950 Output Total 50 Balance 900 Weight 64.4 kg Intake: IV 950 Output: Estimated Blood Loss 50 Other: # Voids 0 2 # Bowel Movements 0 - Exam Right lower extremity: Incision is clean, dry, and intact. The exofin fusion tape is in good condition. There is minimal soft tissue swelling and ecchymosis surrounding the medial and lateral aspects of the incision. Calf is soft, no tenderness with palpation. Plantar flexion, dorsiflexion, EHL, FHL are intact. Sensory exam to light touch throughout the extremity is intact, dorsal pedis pulses 2+. - Labs CBC & Chem 7: 10/30/22 04:30 Labs: Abnormal Lab Results - Last 24 Hours (Table) 10/30/22 Range/Units 04:30 WBC 10.12 H (4.50-10.00) X 10*3/uL RBC 3.67 L (4.10-5.20) X 10*6/uL Hgb 10.9 L (12.0-15.0) g/dL Hct 33.2 L (37.2-46.3) % MPV 12.3 H (9.5-12.2) fL Immature Gran # 0.07 H (0.00-0.04) X 10*3/uL Neutrophils # 7.97 H (1.80-7.70) X 10*3/uL Eosinophils # 0.01 L (0.04-0.35) X 10*3/uL Assessment and Plan Assessment: Postoperative day #1 status post right total knee arthroplasty Plan: Pain control, advised patient she try to not utilize the IV pain medication. He would like to begin the patient on oral medications. We also discussed the need to something prior to taking the medications to help prevent nausea. Zofran is also been ordered for when necessary DVT prophylaxis, continue Xarelto during hospital stay Wound care, postoperative bandages removed at bedside, a basic bandage was placed. Icing and elevating techniques were discussed Encourage incentive spirometer PT/OT Medical recommendations Discharge planning: Plan to keep patient in hospital due to pain control issues, hopeful discharged to home on 10/31 with home health care Time with Patient: Less than 30
[2022-10-30 15:25] VITALS: RESP 18
--- NOTE | 2022-10-30 17:23 | P.PN ---
Subjective Progress Note Date: 10/30/22 Patient is a 82 year old F with PMH of hypertension, autoimmune hepatitis, seasonal ALLERGIES presents to [facility] for elective surgery. She underwent right total knee arthroscopy on 10/[address] Thomas. [facility] has been consulted for medical management of this patient. 10/30 Patient reports numbness in her bilateral lower extremities, resolving. Slight difficulty working with PT this morning, they recommend one more day. She is determined to go home. CBC shows WBC count of 10.12, Hg 10.9. General: non toxic, no distress, appears at stated age Derm: warm, dry Head: atraumatic, normocephalic, symmetric Eyes: EOMI, no lid lag, anicteric sclera Cardiovascular: good distal perfusion in all 4 extremities Lungs: no accessory muscle use Ext: no gross muscle atrophy, no edema, no contractures Neuro: no focal neuro deficits Psych: Alert, oriented, appropriate affect Hypertension Autoimmune hepatitis Seasonal ALLERGIES Status post right total knee arthroscopy on 10/[address] Thomas Based on my assessment of this patient, this patient meets a moderate complexity level of care. Patient has a chronic diagnosis of hypertension, autoimmune hepatitis, seasonal ALLERGIES. Hypertension: Restart Lisinopril 20 mg PO QD. Autoimmune hepatitis: Restart Azithioprine 50 mg PO QD. Seasonal ALLERGIES: Restart [place] 180 mg PO QD. Hold ASA 81 mg PO QD while on Xarelto. DVT Prophylaxis: Xarelto 10 mg PO QD. NO CODE but OK with intubation. Daughter and Son is the decision maker if she can't make decisions for herself. I have reviewed the following advertising sales consultant notes: Orthopedic surgery note 10/30, anticipate DC home 10/31 if pain better controlled. I have reviewed the results of the following tests: CBC shows WBC count of 10.12, Hg 10.9. I have ordered the following tests: I have discussed the care of this patient with the following independent historian: I have independently interpreted the following test below: I have discussed the management of this patient with the following physician: Objective - Vital Signs Vital signs: Vital Signs Temp 98.1 F 10/30/22 14:17 Pulse 66 10/30/22 14:17 Resp 18 10/30/22 14:17 BP 121/60 10/30/22 14:17 Pulse Ox 99 10/30/22 14:17 FiO2 Intake & Output 10/29/22 10/30/22 10/30/22 18:59 06:59 18:59 Intake Total 950 Output Total 50 Balance 900 Weight 64.4 kg Intake: IV 950 Output: Estimated Blood Loss 50 Other: # Voids 0 2 2 # Bowel Movements 0 - Labs CBC & Chem 7: 10/30/22 04:30 Labs: Abnormal Lab Results - Last 24 Hours (Table) 10/30/22 Range/Units 04:30 WBC 10.12 H (4.50-10.00) X 10*3/uL RBC 3.67 L (4.10-5.20) X 10*6/uL Hgb 10.9 L (12.0-15.0) g/dL Hct 33.2 L (37.2-46.3) % MPV 12.3 H (9.5-12.2) fL Immature Gran # 0.07 H (0.00-0.04) X 10*3/uL Neutrophils # 7.97 H (1.80-7.70) X 10*3/uL Eosinophils # 0.01 L (0.04-0.35) X 10*3/uL
[2022-10-30] MEDS: SENNOSIDES-DOCUSATE SODIUM 1 EACH TAB PO SCH (19:59)
[2022-10-31 04:40] VITALS: PULSE 65
[2022-10-31] MEDS: LACTATED RINGERS 1,000 ML IV SCH (08:01)
[2022-10-31] MEDS: RIVAROXABAN 10 MG TAB PO SCH (08:06)
[2022-10-31] MEDS: LORATADINE 10 MG TAB PO SCH (08:06)
[2022-10-31] MEDS: lisinopriL 20 MG TAB PO SCH (08:06)
[2022-10-31] MEDS: FOLIC ACID 1 MG TAB PO SCH (08:06)
[2022-10-31] MEDS: azaTHIOprine 50 MG TAB PO SCH (08:06)
[2022-10-31 08:37] VITALS: BP 143/57; TEMP 99.5
--- NOTE | 2022-10-31 12:09 | P.PN ---
Subjective Progress Note Date: 10/31/22 Principal diagnosis: Status post right total knee arthroplasty Patient was examined today at bedside, she is resting in a hospital bed. Patient is feeling a lot better today, she's had no nausea or vomiting. She's been ambulating well with physical therapy. She was able to use stairs with minimal difficulty. She denies headaches, lightheadedness, chest pain or shortness of breath Objective - Vital Signs Vital signs: Vital Signs Temp 99.5 F 10/31/22 07:19 Pulse 65 10/31/22 08:07 Resp 18 10/31/22 08:07 BP 143/57 10/31/22 07:19 Pulse Ox 96 10/31/22 07:19 FiO2 Intake & Output 10/30/22 10/31/22 10/31/22 18:59 06:59 18:59 Intake Total 180 Balance 180 Intake: Oral 180 Other: # Voids 2 1 1 - Exam Right lower extremity: Incision is clean, dry, and intact. The exofin fusion tape is in good condition. There is minimal soft tissue swelling and ecchymosis surrounding the medial and lateral aspects of the incision. Calf is soft, no tenderness with palpation. Plantar flexion, dorsiflexion, EHL, FHL are intact. Sensory exam to light touch throughout the extremity is intact, dorsal pedis pulses 2+. - Labs CBC & Chem 7: 10/30/22 04:30 Assessment and Plan Assessment: Postoperative day #2 status post right total knee arthroplasty Plan: Pain control, plan for discharge home on [place] 5 mg/325 mg DVT prophylaxis, aspirin 325 mg daily for 2 weeks Wound care, postoperative bandages removed at bedside, a basic bandage was placed. Icing and elevating techniques were discussed Encourage incentive spirometer PT/OT Medical recommendations Discharge planning: Plan for discharge to home today Time with Patient: Less than 30
--- NOTE | 2022-10-31 12:13 | P.DS ---
Providers Date of admission: 10/29/2022 Expected date of discharge: 10/31/22 Attending physician: Ken Thomas Consults: 10/29/22 14:54 Consult Physician Routine Consulting Provider: Vidya Perez Consult Reason/Comments: Medical Management s/p right total knee arthroplasty Do you want consulting provider notified?: Yes [facility] Course: Date of admission: 10/29/2022 Date of discharge: 10/31/2022 Admission diagnosis: Status post right total knee arthroplasty Discharge diagnosis: Same Attending physician: Dr. Thomas Surgical procedures: Right total knee arthroplasty Brief history: Patient is a 82-year-old female with a history of progressive primary right knee osteoarthritis. At this point patient has failed conservative treatment measures and has opted to proceed with a elective right total knee arthroplasty. Hospital course: Details of patient's surgery can be found in operative report. Patient tolerated the procedure well and was subsequently transported to orthopedic floor. Patient's orthopeidc and medical care was provided daily. Patient had daily laboratory tests performed for evaluation of overall blood counts. Patient had daily physical therapy to include strengthening range of motion as well as education with walker ambulation. Patient was treated with Xarelto for their postoperative DVT prophylaxis during their inpatient stay. Patient was noted to have a relatively uneventful postoperative course. Patient reported satisfactory pain control with oral pain medications by postoperative day 1. Patient showed satisfactory progress with physical therapy. Patient moved steadily through the program and had no difficulty meeting the goals by postoperative day 2. Given patient's otherwise satisfactory course and having met physical therapy goals, plan is to discharge patient home on postoperative day 2. Discharge condition/disposition: Patient will be discharged home in stable condition. Discharge medications: Instructions are given on resumption of patient's normal daily medications per primary care recommendation, in addition patient will be prescribed [place] 5 mg/325 mg, Senokot-S, aspirin 325 mg. Discharge instructions: 1. Wound care and infection precautions, keep incision dry and covered while showering, no lotions, creams, moisturizers. No soaking, tubs, pools, hottubs. Do not scrub over the incision. 2. Weight-bear as tolerated with walker / cane until follow-up. 3. Ice and elevate when necessary. Do not exceed 20 minutes per hour with ice pack. 4. Utilize compression sleeve until seen at first follow up appointment. 5. Visiting nursing care. 6. Home physical therapy including home CPM. 7. Pain meds and anticoagulants per prescription. 8. Pain medication has potential to cause constipation. Increase oral fluid and fiber intake. Contact primary care provider if you have not had a bowel movement within 48 hours after discharge 9. No anti-inflammatory medication until discussed at first post operative visit, this including Motrin, Aleve, Mobic, Diclofenac. 10. Follow up in office at 2 weeks postop with Олег Magana PA-C/Raji Arechiga 11. Follow up with your primary care doctor 7-10 days after discharge. 12. Contact [facility] with any questions, . I Procedures: Right total knee arthroplasty Patient Condition at Discharge: Good Plan - Discharge Summary Discharge Rx Participant: No New Discharge Prescriptions: New Aspirin 325 mg PO DAILY #30 tab Sennosides/Docusate Sodium [Senna-S 8.6-50 mg Tablet] 1 each PO DAILY PRN #21 tablet PRN Reason: Constipation HYDROcodone/APAP 5-325MG [[place] 5-325] 1 - 2 tab PO Q6HR PRN #42 tab PRN Reason: Pain Discontinued Aspirin 81 mg PO DAILY No Action azaTHIOprine [Imuran] 50 mg PO DAILY lisinopriL 20 mg PO DAILY Folate 1 tab PO DAILY Cranberry Fruit Concentrate [Azo Cranberry] 250 mg PO DAILY Turmeric Root Extract [Turmeric] 500 mg PO DAILY Multivitamins, Thera [Multivitamin (formulary)] 1 tab PO DAILY Fexofenadine HCl [[place] Allergy] 180 mg PO DAILY Vitamin E Acetate [Vitamin E] 134 mg PO DAILY Discharge Medication List azaTHIOprine [Imuran] 50 mg PO DAILY 06/17/19 [History] lisinopriL 20 mg PO DAILY 05/17/20 [History] Cranberry Fruit Concentrate [Azo Cranberry] 250 mg PO DAILY 10/24/22 [History] Fexofenadine HCl [[place] Allergy] 180 mg PO DAILY 10/24/22 [History] Folate 1 tab PO DAILY 10/24/22 [History] Multivitamins, Thera [Multivitamin (formulary)] 1 tab PO DAILY 10/24/22 [History] Turmeric Root Extract [Turmeric] 500 mg PO DAILY 05/18/23 [History] Vitamin E Acetate [Vitamin E] 134 mg PO DAILY 10/24/22 [History] Aspirin 325 mg PO DAILY #30 tab 10/31/22 [Rx] HYDROcodone/APAP 5-325MG [[place] 5-325] 1 - 2 tab PO Q6HR PRN #42 tab 10/31/22 [Rx] Sennosides/Docusate Sodium [Senna-S 8.6-50 mg Tablet] 1 each PO DAILY PRN #21 tablet 10/31/22 [Rx] Follow up Appointment(s)/Referral(s): [facility], [NON-STAFF] - As Needed Raji Mills, PAC [PHYSICIAN SPLITTER TENDER] - 11/14/22 11:20 am [facility],Equipment [NON-STAFF] - As Needed (Continuous Passive Motion knee machine) Patient Instructions/Handouts: Knee Replacement (DC) Activity/Diet/Wound Care/Special Instructions: Orthopedic Discharge Instructions: 1. Wound care and infection precautions, keep incision dry and covered while showering, no lotions, creams, moisturizers. No soaking, pools, hot tubs. Do not scrub over incision. 2. Weight-bear as tolerated with walker / cane until follow-up. 3. Ice and elevate when necessary. Do not exceed 20 minutes per hour with ice pack. 4. Utilize compression sleeve until seen at first follow up appointment. 5. Pain meds and anticoagulants per prescription. 6. Pain medication has potential to cause constipation. Increase oral fluid and fiber intake. Contact primary care provider if you have not had a bowel movement within 48 hours after discharge. 7. No anti-inflammatory medication until discussed at first post operative visit, this including Motrin, Aleve, Mobic, Diclofenac. 8. Follow up in office at 2 weeks postop with Олег Magana PA-C / Raji Mills PA-C 9. Follow up with your primary care doctor 7-10 days after discharge. 10. Contact [facility] with any questions, . Keep incision clean, dry, intact. While showering, cover fusion tape with Saran wrap. Keep fusion tape on until follow-up appointment in office at 2 weeks. Discharge Disposition: HOME WITH HOME HEALTH SERVICES
== END 2022-10-31 14:58 | disposition home health service (06) ==
LOC: OR 09:48 → 4SSUR 15:03 → OR 10-31 14:58
PROVIDERS: ATTEND Orthopaedic Surgery
DX: M17.11 Unilateral primary osteoarthritis, right knee (principal); G89.18 Other acute postprocedural pain; I10 Essential (primary) hypertension; K75.4 Autoimmune hepatitis; Z86.14 Personal history of Methicillin resistant Staphylococcus aureus infection; Z86.69 Personal history of other diseases of the nervous system and sense organs; Z98.890 Other specified postprocedural states; Z82.61 Family history of arthritis; Z79.82 Long term (current) use of aspirin; Z88.5 Allergy status to narcotic agent; Z88.6 Allergy status to analgesic agent; Z88.8 Allergy status to other drugs, medicaments and biological substances
CPT/HCPCS: 27447; 64448; 64999; 97116; 97162; 97530; 97166; 85025; 73560; C1713 ×2; C1776; C1751; J7500 ×2; J2250; J1100; J0690 ×2; J2405 ×2; J3010; J2795; J2704; J1170

== ENCOUNTER → 2022-12-16 | Outpatient (CLI) | payer MEDICARE ==
--- NOTE | 2022-12-16 11:22 | MM ---
Reason for Exam: Follow-up at short interval from prior study. Last mammogram was performed 1 year(s) and 6 month(s) ago. Patient History: Menarche at age 14. First Full-Term at age 16. Postmenopausal. Patient used Estrogen for 24 years. Patient used Progesterone for 24 years. Benign Excisional Biopsy on the right side. Benign Excisional Biopsy on the left side. 10/13/2019, Benign Core Biopsy on the left side. Risk Values: Cristina 5 year model risk: 1.4%. NCI Lifetime model risk: 1.6%. Tissue Density: The breast tissue is heterogeneously dense. This may lower the sensitivity of mammography. Findings: Analyzed By CAD. No evidence for mass or distortion. Benign calcifications are seen bilaterally. Overall Assessment: Benign, BI-RAD 2 Management: Screening Mammogram of both breasts in 1 year. . Results were given to the patient verbally at the time of exam. Patient should continue monthly self-breast exams. A clinical breast exam by your physician is recommended on an annual basis. This exam should not preclude additional follow-up of suspicious palpable abnormalities. Note on Cristina scores and lifetime risk: 1. A Cristina score greater than 3% is considered moderate risk. If this is the case, consider specialist referral to assess eligibility for a risk reducing agent. 2. If overall lifetime risk for the development of breast cancer is 20% or higher, the patient may qualify for future screening with alternating mammogram and breast MRI. Electronically signed and approved by: Jesus Alberto Jasso M.D. Radiologis
== END | disposition home or self-care (01) ==
LOC: RADMAMWWP 10:58
PROVIDERS: ATTEND Family Medicine
DX: R92.8 Other abnormal and inconclusive findings on diagnostic imaging of breast (principal); Z78.0 Asymptomatic menopausal state
CPT/HCPCS: 77062; 77066

== ENCOUNTER 2023-01-08 11:15 | Day surgery (SDC) | payer MEDICARE ==
--- NOTE | 2023-01-08 07:37 | P.HPOR ---
History of Present Illness H&P Date: 01/08/23 Chief Complaint: Right knee stiffness The patient is an 82-year-old female who presents after undergoing right total knee arthroplasty 10/29/2022 who presents with persistent stiffness despite adequate rehabilitation. She otherwise had an uncomplicated postoperative course. She denies fevers or chills. She is ambulating independently. Review of Systems As per HPI Past Medical History Past Medical History: Hypertension, Liver Disease, Osteoarthritis (OA) Additional Past Medical History / Comment(s): UTERINE PROLAPSED. bladder problems, new elevated liver enzymes, hepatitis History of Any Multi-Drug Resistant Organisms: MRSA Date of last positivie culture/infection: 06/22/2015 MDRO Source:: urine Past Surgical History: Bladder Surgery, Hysterectomy, Orthopedic Surgery Additional Past Surgical History / Comment(s): rt shoulder arthroscopy, NIKI knee surg. arthroscopy,niki breast bx, BLADDER SUSPENSION , total rt knee Past Anesthesia/Blood Transfusion Reactions: Motion Sickness Additional Past Anesthesia/Blood Transfusion Reaction / Comment(s): no hx blood transfusion Smoking Status: Never smoker - Past Family History Father Family Medical History: Cancer Additional Family Medical History / Comment(s): stomach Mother Family Medical History: Osteoarthritis (OA) Additional Family Medical History / Comment(s): blockage in artery in neck Sister(s) Family Medical History: Pneumonia Medications and Allergies Home Medications Medication Instructions Recorded Confirmed Type lisinopriL 20 mg PO DAILY 05/17/20 01/06/23 History Fexofenadine HCl [Savan[place] Allergy] 180 mg PO DAILY 10/24/22 01/06/23 History Folate 1 tab PO DAILY 10/24/22 01/06/23 History Multivitamins, Thera [Multivitamin 1 tab PO DAILY 10/24/22 01/06/23 History (formulary)] Turmeric Root Extract [Turmeric] 500 mg PO DAILY 10/24/22 01/06/23 History Vitamin E Acetate [Vitamin E] 134 mg PO DAILY 10/24/22 01/06/23 History Aspirin 81 mg PO DAILY 01/06/23 01/06/23 History Allergies Allergy/AdvReac Type Severity Reaction Status Date / Time codeine AdvReac Nausea & Verified 01/06/23 13:59 Vomiting cyclobenzaprine HCl AdvReac Nausea & Verified 01/06/23 13:59 [From Flexeril] Vomiting ibuprofen [From Motrin] AdvReac Nausea & Verified 01/06/23 13:59 Vomiting morphine AdvReac Nausea & Verified 01/06/23 13:59 Vomiting pentazocine AdvReac Nausea & Verified 01/06/23 13:59 Vomiting tramadol HCl [From Ultram] AdvReac Nausea & Verified 01/06/23 13:59 Vomiting Physical Examination - Knee right Previous incision location: Midline incision well healed Tenderness with palpation: none ROM: extension: -10 degrees ROM: flexion: 80 degrees Crepitus with motion: No Strength: extension: 5/5 Strength: flexion: 5/5 Results The patient is a well-developed well-nourished female approximately 5 foot 3, 158 pounds of mesomorphic habitus. HEENT exam is nonfocal, neck is supple. She has painless passive motion of the right hip. Straight leg raise is negative. Her right knee is stable to varus and valgus stress. Her distal neurovascular appears intact in the right lower extremity. 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 At this point she remains quite stiff despite adequate rehabilitation. After thorough discussion she opts to proceed with manipulation under anesthesia. Risks and benefits were discussed at length in layman's terms. We will likely perform as an outpatient procedure utilizing IV sedation.
[~2023-01-08 11:15] MED LIST changes: -ACETAMINOPHEN TAB 500 MG TAB PO PRN; -DEXAMETHASONE SOD PHOSPHATE 4 MG/ML 1 ML VIAL IV ONE; -HYDROmorphone 0.5 MG/0.5 ML SYRINGE IVP PRN; +LACTATED RINGERS 1,000 ML IV SCH; -MELOXICAM 7.5 MG TAB PO PRN; -MIDAZOLAM 2 MG/2 ML VIAL IV PRN; -TRANEXAMIC ACID IN NACL,ISO-OS 1,000 MG in SALINE 1 100ML.BAG IVPB PRN; +fentaNYL (PF) 50 MCG/ML 2 ML AMP IV PRN
[2023-01-08 11:42] VITALS: TEMP 98.3
[2023-01-08] MEDS ORDERED: LIDOCAINE 2% INJ 20 MG/ML (2 ML VIAL) ONE (13:25)
[2023-01-08] MEDS ORDERED: fentaNYL (PF) 50 MCG/ML 2 ML AMP ONE (13:25)
[2023-01-08] MEDS ORDERED: PROPOFOL 10 MG/ML 20 ML VIAL IV ONE (13:25)
--- NOTE | 2023-01-08 13:34 | P.OP ---
Date of Procedure: 01/08/23 Preoperative Diagnosis: Status post right total knee arthroplasty/arthrofibrosis Postoperative Diagnosis: Same Procedure(s) Performed: Manipulation under anesthesia right knee Anesthesia: MAC Surgeon: Ken Thomas Estimated Blood Loss (ml): 0 Pathology: none sent Condition: stable Disposition: PACU Indications for Procedure: The patient is an 82-year-old female who recently underwent right total knee arthroplasty without complication who presents persistent stiffness despite adequate rehabilitation. A discussion of the risks and benefits of manipulation under anesthesia was made with patient. She opted to proceed. Operative risks to include fracture, tendon rupture, possible recurrence of stiffness and need for subsequent procedures was discussed. Informed consent was obtained. Operative Findings: As below Description of Procedure: The patient was brought to the recovery room, and after induction of IV sedation then gently manipulated the right knee. There was significant block to flexion. I obtained 125 of flexion and encountered moderate adhesions. I was also able to obtain full extension. She tolerated the procedure well per there were no complications. There was no blood loss. She was monitored until fully awake.
[2023-01-08] MEDS ORDERED: HYDROmorphone 0.5 MG/0.5 ML SYRINGE IVP ONE ×2 (13:50→14:02)
[2023-01-08 14:30] VITALS: RESP 16
[2023-01-08 14:39] VITALS: BP 162/70; PULSE 75
== END 2023-01-08 15:08 | disposition home or self-care (01) ==
LOC: OR 11:15
PROVIDERS: ATTEND Orthopaedic Surgery
DX: M24.661 Ankylosis, right knee (principal); I10 Essential (primary) hypertension; M19.90 Unspecified osteoarthritis, unspecified site; Z90.710 Acquired absence of both cervix and uterus; Z96.651 Presence of right artificial knee joint; Z98.890 Other specified postprocedural states; Z79.82 Long term (current) use of aspirin; Z88.5 Allergy status to narcotic agent
CPT/HCPCS: 27570; J2405; J3010; J2704; J1170; J2001

== ENCOUNTER → 2023-12-19 | Outpatient (CLI) | payer MEDICARE ==
--- NOTE | 2023-12-26 13:14 | MM ---
Reason for Exam: Screening (asymptomatic). Last screening mammogram was performed 12 month(s) ago. Patient History: Menarche at age 14. First Full-Term at age 16. Postmenopausal. Patient used Estrogen for 24 years. Patient used Progesterone for 24 years. Benign Excisional Biopsy on the right side. Benign Excisional Biopsy on the left side. 10/13/2019, Benign Core Biopsy on the left side. Risk Values: Cristina 5 year model risk: 1.3%. NCI Lifetime model risk: 1.3%. Prior Study Comparison: 06/25/2021 Left Diagnostic Mammogram, [facility]. 12/11/2021 Left MG diagnostic mammo LT w CAD, [facility]. 12/16/2022 Bilateral MG 3D diag mammo w/cad [facility], [facility]. Tissue Density: The breasts are heterogeneously dense, which may obscure small masses. Findings: Analyzed By CAD. Right breast: There is no suspicious group of microcalcifications or new suspicious mass. Left breast: There is no suspicious group of microcalcifications or new suspicious mass. Overall Assessment: Negative, BI-RAD 1 Management: Screening Mammogram of both breasts in [address] [facility] will attempt to contact patient to return for supplemental views and ultrasound if indicated. Patient should continue monthly self-breast exams. A clinical breast exam by your physician is recommended on an annual basis. This exam should not preclude additional follow-up of suspicious palpable abnormalities. Note on Cristina scores and lifetime risk: 1. A Cristina score greater than 3% is considered moderate risk. If this is the case, consider specialist referral to assess eligibility for a risk reducing agent. 2. If overall lifetime risk for the development of breast cancer is 20% or higher, the patient may qualify for future screening with alternating mammogram and breast MRI. Electronically signed and approved by: Vasile Coelho DO
== END | disposition home or self-care (01) ==
LOC: RADMAMWWP 09:58
PROVIDERS: ATTEND Family Medicine
DX: Z12.31 Encounter for screening mammogram for malignant neoplasm of breast (principal); Z78.0 Asymptomatic menopausal state
CPT/HCPCS: 77067

== ENCOUNTER → 2024-01-15 | Outpatient (CLI) | payer MEDICARE ==
--- NOTE | 2024-02-05 14:29 | MR ---
Site ID [facility] Patient Joy Minaya G ID [id number] Age/Gender: 83Y, F Order # N/A Procedure MR brain wo con Date 01/15/2024 1:24:00 PM EXAMINATION TYPE: MR brain wo con DATE OF EXAM: 01/29/2024 11:31 AM COMPARISON: CT brain 11/22/2018. CLINICAL INDICATION: Female, 83 year old with history of CVA, loss, confusion. TECHNIQUE: Multi planar, multi sequence imaging was performed through the brain. No gadolinium was gi brandie. FINDINGS: The butcher-white junctions are unremarkable. Prominence of the ventricular system. This hernandez probably involves asymmetrical increased size of the right lateral ventricle temporal and posterior horns. Fe w foci of high T2/FLAIR signal intensity are seen within the subcortical white matter of the bilatera l frontal and parietal lobes. Approximately 15 lesions. Largest is within the left frontal lobe subco rtical white matter measuring up to 5 mm (series 601, image 24). Midline structures show no abnormali ty. Diffusion-weighted imaging shows no evidence of restricted diffusion. The susceptibility weighted images do not reveal any evidence for micro-hemorrhage. Age-appropriate cerebral volume loss. Develo pmental venous anomaly within the right cerebellar hemisphere. The bone marrow signal is within normal limits. The paranasal sinuses and globes are unremarkable. IMPRESSION: 1. No evidence of intracranial mass or acute/subacute infarct. 2. Nonspecific white matter changes, likely secondary to small vessel ischemic disease. 3. Slight asymmetric increased size of the right lateral ventricle temporal and posterior horns which may be related to age-appropriate cerebral volume loss with early hydrocephalus not excluded. Correl ate clinically.
== END | disposition home or self-care (01) ==
LOC: RADMRIMAIN 14:30
PROVIDERS: ATTEND Psychiatry & Neurology Neurology
DX: I67.9 Cerebrovascular disease, unspecified (principal); F03.B4 Unspecified dementia, moderate, with anxiety; I65.23 Occlusion and stenosis of bilateral carotid arteries; I10 Essential (primary) hypertension; R01.1 Cardiac murmur, unspecified; R90.82 White matter disease, unspecified; E78.2 Mixed hyperlipidemia; Z86.73 Personal history of transient ischemic attack (TIA), and cerebral infarction without residual deficits
CPT/HCPCS: 70551

== ENCOUNTER → 2024-03-02 | Outpatient (CLI) | payer MEDICARE ==
--- NOTE | 2024-03-03 00:28 | US ---
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 Indirect Doppler criteria was utilized. FINDINGS: EXAM MEASUREMENTS: RIGHT: Peak Systolic Velocity (PSV) cm/sec ----- Right CCA: 112.8 ----- Right ICA: 133.1 ----- Right ECA: 135.0 ICA/CCA ratio: 1.2 RIGHT: End Diastole cm/sec ----- Right CCA: 24.1 ----- Right ICA: 29.9 ----- Right ECA: 4.2 LEFT: Peak Systolic Velocity (PSV) cm/sec ----- Left CCA: 107.9 ----- Left ICA: 94.7 ----- Left ECA: 106.6 ICA/CCA ratio: 0.9 LEFT: End Diastole cm/sec ----- Left CCA: 23.3 ----- Left ICA: 25.9 ----- Left ECA: 0.0 VERTEBRALS (direction of flow): Right Vertebral: Antegrade Left Vertebral: Antegrade Rhythm: Normal [employer]EF[employer] ASSISTANT NOTES: plaque in bilateral bulbs a large plaque is in the right carotid bulb. There is el evation of the right internal carotid artery velocity IMPRESSION: 1. Atheromatous plaquing. There is moderate narrowing of the right internal carotid artery between 50 and 69% based on velocities. Criteria for Assigning % of Stenosis / Diameter reduction (Estimation based on the indirect measurements of the internal carotid artery velocities (ICA PSV). 1. Normal (no stenosis)=ICA PSV < 125 cm/s: ratio < 2.0: ICA EDV<40 cm/s. 2. Less than 50% stenosis=ICA PSV < 125 cm/s: ratio < 2.0: ICA EDV<40 cm/s. 3. 50 to 69% stenosis=ICA PSV of 125 to 230 cm/s: ration 2.0 ? 4.0: ICA EDV 40-100 cm/s. 4. Greater than 70% stenosis to near occlusion= ICA PSV > 230 cm/s: ratio > 4.0: ICA EDV > 100 cm/s. 5. Near occlusion= ICA PSV velocities may be low or undetectable: variable ratio and ICA EDV. 6. Total occlusion=unable to detect flow. [facility], , 03/03/2024 12:26 AM
== END | disposition home or self-care (01) ==
LOC: RADUSWWP 13:41
PROVIDERS: ATTEND Family Medicine
DX: F03.B4 Unspecified dementia, moderate, with anxiety (principal); I10 Essential (primary) hypertension; E78.2 Mixed hyperlipidemia; I65.23 Occlusion and stenosis of bilateral carotid arteries; R01.1 Cardiac murmur, unspecified; I70.90 Unspecified atherosclerosis
CPT/HCPCS: 93880

== ENCOUNTER → 2024-12-27 | Outpatient (CLI) | payer MEDICARE ==
--- NOTE | 2024-12-28 08:49 | MM ---
Reason for Exam: Screening (asymptomatic). Last screening mammogram was performed 12 month(s) ago. Patient History: Menarche at age 14. First Full-Term at age 16. Postmenopausal. Patient used Estrogen for 24 years. Patient used Progesterone for 24 years. Benign Excisional Biopsy on the right side. Benign Excisional Biopsy on the left side. 10/13/2019, Benign Core Biopsy on the left side. Prior Study Comparison: 12/11/2021 Left MG diagnostic mammo LT w CAD, [facility]. 12/16/2022 Bilateral MG 3D diag mammo w/cad NIKI, [facility]. 12/19/2023 Bilateral MG screening mammo w CAD, [facility]. Tissue Density: The breasts are heterogeneously dense, which may obscure small masses. Findings: Analyzed By CAD. Right breast: There is no suspicious group of microcalcifications or new suspicious mass. Benign-appearing calcifications right breast. Left breast: There is no suspicious group of microcalcifications or new suspicious mass. Benign-appearing calcifications left breast. Overall Assessment: Benign, BI-RAD 2 Management: Screening Mammogram of both breasts in [address] [facility] will attempt to contact patient to return for supplemental views and ultrasound if indicated. Patient should continue monthly self-breast exams. A clinical breast exam by your physician is recommended on an annual basis. This exam should not preclude additional follow-up of suspicious palpable abnormalities. Note on Cristina scores and lifetime risk: 1. A Cristina score greater than 3% is considered moderate risk. If this is the case, consider specialist referral to assess eligibility for a risk reducing agent. 2. If overall lifetime risk for the development of breast cancer is 20% or higher, the patient may qualify for future screening with alternating mammogram and breast MRI. [facility], , 12/28/2024 8:46 AM. Electronically signed and approved by: Vasile Coelho DO
== END | disposition home or self-care (01) ==
LOC: RADMAMWWP 15:23
PROVIDERS: ATTEND Family Medicine
DX: Z12.31 Encounter for screening mammogram for malignant neoplasm of breast (principal); R92.333 Mammographic heterogeneous density, bilateral breasts; R92.1 Mammographic calcification found on diagnostic imaging of breast; Z78.0 Asymptomatic menopausal state
CPT/HCPCS: 77063; 77067